=== PATIENT | male | born 1960 ===

== ENCOUNTER 2017-04-14 10:06 | Emergency (ER) | payer OTHER ==
[2017-04-14 10:17] VITALS: BP 132/86; PULSE 62; RESP 18; TEMP 98.3; O2SAT 100
--- NOTE | 2017-04-14 11:07 | C.PDOC ---
History Of Present Illness 57 yr old male presents to the ER with complaints of right ankle pain for more then 1 month. Patient states he has not seen his PMD. Denies trauma, back pain, leg pain, weakness or numbness. Time Seen by Provider: 04/14/17 10:45 Chief Complaint (Nursing): Lower Extremity Problem/Injury History Per: Patient History/Exam Limitations: no limitations Onset/Duration Of Symptoms: Persistent (More then 1 month ) Past Medical History Reviewed: Historical Data, Nursing Documentation, Vital Signs Vital Signs: Last Vital Signs Temp 98.3 F 04/14/17 10:16 Pulse 62 04/14/17 10:16 Resp 18 04/14/17 10:16 BP 132/86 04/14/17 10:16 Pulse Ox 100 04/14/17 13:44 Family History: States: No Known Family Hx - Social History Hx Alcohol Use: Yes Hx Substance Use: No - Immunization History Hx Tetanus Toxoid Vaccination: No Hx Influenza Vaccination: No Hx Pneumococcal Vaccination: No Review Of Systems Except As Marked, All Systems Reviewed And Found Negative. Musculoskeletal: Positive for: Other ((+) Right ankle pain ). Negative for: Back Pain, Leg Pain Neurological: Negative for: Weakness, Numbness Physical Exam - Physical Exam Appears: Non-toxic, No Acute Distress Skin: Warm, Dry, No Rash Head: Atraumatic, Normacephalic Extremity: Normal ROM, No Tenderness, No Calf Tenderness, No Swelling Neurological/Psych: Oriented x3, Normal Speech, Normal Motor ED Course And Treatment O2 Sat by Pulse Oximetry: 100 Disposition - Disposition Referrals: [facility] [Outside] [facility] [Outside] Evelyn Emmanuel MD [Staff Provider] - Disposition: HOME/ ROUTINE Disposition Time: 11:05 Condition: GOOD Additional Instructions: Thank you for letting us take care of you today. Your provider was Dr. Chow. You were treated for ankle pain. The emergency medical care you received today was directed at your acute symptoms. If you were prescribed any medication, please fill it and take as directed. It may take several days for your symptoms to resolve. Return to the Emergency Department if your symptoms worsen, do not improve, or if you have any other problems. Please contact your doctor or call one of the physicians/clinics you have been referred to that are listed on the Patient Visit Information form that is included in your discharge packet. Bring any paperwork you were given at discharge with you along with any medications you are taking to your follow up visit. Our treatment cannot replace ongoing medical care by a primary care provider (PCP) outside of the emergency department. Thank you for allowing the [facility] team to be part of your care today. Follow up with Dr. Kingsley Leonard, orthopedics, for you ankle pain in 2-3 days. Follow up in the clinic for outpatient primary care in 3-5 days. Prescriptions: Ibuprofen [Motrin] 600 mg PO Q6 PRN #20 tab PRN Reason: Pain, Moderate (4-7) Instructions: Ankle Sprain (ED) Forms: Gen Discharge Inst Polish Print Language: BULGARIAN - Clinical Impression Clinical Impression: Joint pain - Scribe Statement The provider has reviewed the documentation as recorded by the Soniaibjosé Penny Provider Attestation: All medical record entries made by the Soniaibjosé were at my direction and personally dictated by me. I have reviewed the chart and agree that the record accurately reflects my personal performance of the history, physical exam, medical decision making, and the department course for this patient. I have also personally directed, reviewed, and agree with the discharge instructions and disposition.
== END 2017-04-14 11:51 | disposition home or self-care (01) ==
LOC: C.ER 10:06
DX: M25.571 Pain in right ankle and joints of right foot (principal)

== ENCOUNTER 2018-03-09 08:59 | Emergency (ER) | payer OTHER ==
[2018-03-09 09:08] VITALS: O2SAT 100
[2018-03-09 09:34] LABS: SQUAMOUS EPITHIAL 1 /hpf (0-5); URINE BILIRUBIN NEGATIVE (NEGATIVE); URINE BLOOD NEGATIVE (NEGATIVE); URINE CLARITY Clear (Clear); URINE COLOR Yellow (YELLOW); URINE GLUCOSE (UA) NORMAL (Normal); URINE LEUKOCYTE ESTERASE NEG Leu/uL (Negative); URINE PROTEIN NEGATIVE (NEGATIVE); URINE UROBILINOGEN NORMAL mg/dL (0.2-1.0)
--- NOTE | 2018-03-09 09:39 | C.PDOC ---
History Of Present Illness 58 year old male presents to the ED for evaluation of sujprapubic/lower abdominal pain x 1 week. Patient states he has normal bowel movements, but feels "hot" when he has a bowel movement. Denies other associated symptoms. Past surgical history is negative. SUPRAPUB/LOWER ABD PAIN X 1 WEEK. INTERMIT. LOCALIZED. PS HAS NORMAL BM BUT FEELS "HOT" WHEN HE HAS A BM. DENIES OTHER ASSOC SX. PSH NEG. EXAM NEG Time Seen by Provider: 03/09/18 09:18 Chief Complaint (Nursing): Abdominal Pain History Per: Patient History/Exam Limitations: no limitations Onset/Duration Of Symptoms: Intermittent Episodes, Other (1 week) Current Symptoms Are (Timing): Still Present Location Of Pain/Discomfort: Suprapubic Quality Of Discomfort: "Pain" Associated Symptoms: denies: Fever, Chills, Nausea, Vomiting Additional History Per: Patient Past Medical History Reviewed: Historical Data, Nursing Documentation, Vital Signs Vital Signs: Last Vital Signs Temp 98.9 F 03/09/18 10:05 Pulse 67 03/09/18 10:05 Resp 18 03/09/18 10:05 BP 117/80 03/09/18 10:05 Pulse Ox 100 03/09/18 10:08 - Medical History PMH: No Chronic Diseases Surgical History: No Surg Hx Family History: States: Unknown Family Hx - Social History Hx Alcohol Use: Yes Hx Substance Use: No - Immunization History Hx Tetanus Toxoid Vaccination: No Hx Influenza Vaccination: No Hx Pneumococcal Vaccination: No Review Of Systems Constitutional: Negative for: Fever, Chills Gastrointestinal: Positive for: Abdominal Pain (suprapubic/lower abdominal ). Negative for: Nausea, Vomiting Physical Exam - Physical Exam Appears: Non-toxic, No Acute Distress Skin: Normal Color, Warm, Dry Head: Atraumatic, Normacephalic Eye(s): bilateral: Normal Inspection Oral Mucosa: Moist Neck: Supple Chest: Symmetrical, No Deformity, No Tenderness Cardiovascular: Rhythm Regular, No Murmur Respiratory: Normal Breath Sounds, No Rales, No Rhonchi, No Wheezing Gastrointestinal/Abdominal: Soft, No Tenderness, No Guarding, No Rebound Extremity: Normal ROM, Capillary Refill (less than 2 seconds) Neurological/Psych: Oriented x3, Normal Speech, Normal Cognition ED Course And Treatment - Laboratory Results Result Diagrams: 03/09/18 09:47 03/09/18 09:47 O2 Sat by Pulse Oximetry: 100 (on RA) Pulse Ox Interpretation: Normal Progress Note: Bloodwork and urinalysis ordered and reviewed. Disposition Counseled Patient/Family Regarding: Studies Performed, Diagnosis, Need For Followup - Disposition Referrals: [facility] [Outside] [facility] [Outside] Disposition: HOME/ ROUTINE Disposition Time: 10:07 Condition: GOOD Additional Instructions: SHAYAN PRUEBAS DE TAWNYA Y DE ORINA SON NORMALES. SEGUIMIENTO EN CLNICA PARA EVALUACIN ADICIONAL. Instructions: Acute Abdomen (Belly Pain), Adult (DC) Forms: [employer] (Cuban) Print Language: OCCITAN - Clinical Impression Clinical Impression: Abdominal pain - Scribe Statement The provider has reviewed the documentation as recorded by the Scribe (Rossy Gold) Provider Attestation: All medical record entries made by the Scribe were at my direction and personally dictated by me. I have reviewed the chart and agree that the record accurately reflects my personal performance of the history, physical exam, medical decision making, and the department course for this patient. I have also personally directed, reviewed, and agree with the discharge instructions and disposition.
[2018-03-09 09:49] LABS: HEMOGLOBIN 15.1 g/dL (12.0-18.0); MEAN CELL VOLUME 80.8 fL (80.0-94.0); MEAN CORPUSCULAR HEMOGLOBIN 27.2 pg (27.0-31.0); MEAN CORPUSCULAR HGB CONC 33.6 g/dL (33.0-37.0); MEAN PLATELET VOLUME 8.9 fL (7.2-11.7); RBC 5.57 Mil/uL (4.40-5.90); RED CELL DISTRIBUTION WIDTH 14.3 % (11.5-14.5); WHITE BLOOD COUNT 8.3 K/uL (4.8-10.8)
[2018-03-09 10:05] LABS: BLOOD UREA NITROGEN 11 mg/dL (9-20); CALCIUM 9.2 mg/dl (8.6-10.4); GFR AFRICAN-AMERICAN > 60; GFR NON-AFRICAN AMERICAN > 60
[2018-03-09 10:42] VITALS: BP 117/80; PULSE 67; RESP 18; TEMP 98.9
== END 2018-03-09 10:05 | disposition home or self-care (01) ==
LOC: C.ER 08:59
DX: R10.30 Lower abdominal pain, unspecified (principal)

== ENCOUNTER 2018-05-14 04:59 | Inpatient (IN) | payer OTHER ==
[2018-05-14] MEDS ORDERED: Sodium Chloride 0.9% 1,000 ML IV ONE (05:11)
--- NOTE | 2018-05-14 05:11 | C.PDOC ---
History Of Present Illness The patient presents to the ED for evaluation of epigastric and left lower quadrant abdominal pain which began last night. Patient also reports nausea and states he had around 4-5 episodes of vomiting last night. Patient denies fever, chills. Time Seen by Provider: 05/14/18 05:10 Chief Complaint (Nursing): Abdominal Pain History Per: Patient History/Exam Limitations: no limitations Onset/Duration Of Symptoms: Hrs Current Symptoms Are (Timing): Still Present Severity: Mild Pain Scale Rating Of: 2 Location Of Pain/Discomfort: Epigastric, LLQ Radiation Of Pain To:: None Quality Of Discomfort: "Pain" Associated Symptoms: Nausea, Vomiting. denies: Fever, Chills Exacerbating Factors: None Alleviating Factors: None Last Bowel Movement: Today Recent travel outside of the [place]: No Additional History Per: Patient Past Medical History Reviewed: Historical Data, Nursing Documentation, Vital Signs Vital Signs: Last Vital Signs Temp 98.3 F 05/14/18 05:02 Pulse 68 05/14/18 05:02 Resp 20 05/14/18 05:02 BP 160/77 H 05/14/18 05:02 Pulse Ox 98 05/14/18 06:21 - Medical History PMH: No Chronic Diseases Surgical History: No Surg Hx Family History: States: Unknown Family Hx - Social History Hx Alcohol Use: Yes Hx Substance Use: No - Immunization History Hx Tetanus Toxoid Vaccination: No Hx Influenza Vaccination: No Hx Pneumococcal Vaccination: No Review Of Systems Constitutional: Negative for: Fever, Chills Cardiovascular: Negative for: Chest Pain, Palpitations Respiratory: Negative for: Cough, Shortness of Breath Gastrointestinal: Positive for: Nausea, Vomiting, Abdominal Pain (epigastric, left lower quadrant ) Skin: Negative for: Rash, Lesions, Jaundice, Bruising Physical Exam - Physical Exam Appears: Non-toxic, No Acute Distress Skin: Warm, Dry Head: Normacephalic Eye(s): bilateral: Normal Inspection Oral Mucosa: Moist Neck: Supple Chest: Symmetrical, No Deformity, No Tenderness Cardiovascular: Rhythm Regular, No Murmur Respiratory: No Rales, No Rhonchi, No Wheezing Gastrointestinal/Abdominal: Soft, Tenderness (left lower quadrant ), No Guarding , No Rebound Extremity: Normal ROM, Capillary Refill (less than 2 seconds ) Neurological/Psych: Oriented x3 ED Course And Treatment - Laboratory Results Result Diagrams: 05/14/18 05:12 08/10/18 05:12 O2 Sat by Pulse Oximetry: 98 (on RA) Pulse Ox Interpretation: Normal Progress Note: Bloodwork, urinalysis, CT A/P ordered. Toradol IVP, Zofran IVP and IV Fluids given. Disposition Counseled Patient/Family Regarding: Studies Performed, Diagnosis - Disposition Disposition Time: 05:11 Condition: FAIR Forms: [employer] (Honduran) - Clinical Impression Clinical Impression: Abdominal pain, Pancreatitis - Scribe Statement The provider has reviewed the documentation as recorded by the Scribe (Rossy Gold) Provider Attestation: All medical record entries made by the Scribe were at my direction and personally dictated by me. I have reviewed the chart and agree that the record accurately reflects my personal performance of the history, physical exam, medical decision making, and the department course for this patient. I have also personally directed, reviewed, and agree with the discharge instructions and disposition. Physician Patient Turnover Patient Signed Over To: Marcelo Chester Handoff Comments: pending labs, ct scan and dispo
[2018-05-14 05:15] LABS: BASO # 0.1 K/uL (0.0-0.2); BASO % 0.5 % (0.0-2.0); EOS # 0.1 K/uL (0.0-0.7); EOS % 0.8 % (0.0-4.0); HEMOGLOBIN 15.3 g/dL (12.0-18.0); LYMPH # 1.8 K/uL (1.0-4.3); LYMPH % 13.2 % (20.0-40.0); MEAN CELL VOLUME 80.5 fL (80.0-94.0); MEAN CORPUSCULAR HEMOGLOBIN 26.3 pg (27.0-31.0); MEAN CORPUSCULAR HGB CONC 32.7 g/dL (33.0-37.0); MEAN PLATELET VOLUME 8.9 fL (7.2-11.7); MONO # 0.5 K/uL (0.0-0.8); MONO % 3.5 % (0.0-10.0); NEUT # 10.8 K/uL (1.8-7.0); NRBC % 0.1 % (0.0-2.0); RBC 5.81 Mil/uL (4.40-5.90); RED CELL DISTRIBUTION WIDTH 13.9 % (11.5-14.5)
[2018-05-14 05:16] LABS: WHITE BLOOD COUNT 13.2 K/uL (4.8-10.8)
[2018-05-14] MEDS ORDERED: Sodium Chloride 0.9% 1,000 ML ONE (05:16)
[2018-05-14 05:33] LABS: ALB/GLOB RATIO 1.3 (1.0-2.1); ALBUMIN 4.8 g/dL (3.5-5.0); ALT/SGPT 61 U/L (21-72); AST/SGOT 38 U/L (17-59); BLOOD UREA NITROGEN 13 mg/dL (9-20); CALCIUM 9.5 mg/dl (8.6-10.4); GFR AFRICAN-AMERICAN > 60; GFR NON-AFRICAN AMERICAN > 60; LIPASE 1275 U/L (23-300)
[2018-05-14 05:55] LABS: URINE BILIRUBIN NEGATIVE (NEGATIVE); URINE BLOOD NEGATIVE (NEGATIVE); URINE CLARITY Clear (Clear); URINE COLOR Yellow (YELLOW); URINE GLUCOSE (UA) NORMAL (Normal); URINE LEUKOCYTE ESTERASE NEG Leu/uL (Negative); URINE PROTEIN NEGATIVE (NEGATIVE); URINE UROBILINOGEN NORMAL mg/dL (0.2-1.0)
[2018-05-14] MEDS ORDERED: Iodixanol 320 MG/ML 100 ML BOTTLE IV ONE (07:39)
[2018-05-14] MEDS ORDERED: Morphine 4 MG/ML VIAL IV STA (08:28)
--- NOTE | 2018-05-14 08:52 | CT ---
Date of service: 05/14/2018 PROCEDURE: CT Abdomen and Pelvis with contrast HISTORY: Abdominal pain, elevated lipase COMPARISON: None. TECHNIQUE: CT scan of the abdomen and pelvis was performed after administration of intravenous contrast. Oral contrast was not administered. Coronal and sagittal reformatted images were obtained. Contrast dose: 100 mL Visipaque Radiation dose: Total exam DLP = 931.41 mGy-cm. This CT exam was performed using one or more of the following dose reduction techniques: Automated exposure control, adjustment of the mA and/or kV according to patient size, and/or use of iterative reconstruction technique. FINDINGS: LOWER THORAX: There is bibasilar atelectasis. LIVER: Diffuse fatty liver. No gross lesion or ductal dilatation. GALLBLADDER AND BILE DUCTS: No calcified gallstones. PANCREAS: Normal in size with homogeneous enhancement. No gross lesion or ductal dilatation. SPLEEN: Normal in size and appearance. ADRENALS: No discrete nodule. KIDNEYS AND URETERS: Normal in size with homogeneous enhancement. No hydronephrosis. No solid mass. VASCULATURE: No aortic aneurysm. BOWEL: There is mild prominence of fluid-filled proximal small bowel loops. The distal small bowel loops are normal in caliber. The colon is decompressed. APPENDIX: Normal appendix. PERITONEUM: No free fluid. No free air. LYMPH NODES: No enlarged lymph nodes. BLADDER: Well distended and normal in appearance. REPRODUCTIVE: The prostate gland is normal in size. BONES: No acute fracture. Within normal limits for the patient's age. OTHER FINDINGS: Bilateral fat containing inguinal hernias. IMPRESSION: No CT evidence for acute pancreatitis. Fatty liver. Mild prominence of fluid-filled proximal small bowel loops is nonspecific and could represent nonspecific enteritis in the appropriate clinical setting. Clinical follow-up is advised.
[2018-05-14 09:25] LABS: AMYLASE 223 U/L (30-110)
[2018-05-14] MEDS: Sodium Chloride 0.45% 1,000 ML IV SCH ×2 (10:48→20:40)
[2018-05-14] MEDS: Piperacillin/Tazobact 3.375 GM in Sodium Chloride 100 ML IVPB SCH ×2 (11:06→18:00)
--- NOTE | 2018-05-14 11:31 | RAD ---
Date of service: 05/14/2018 HISTORY: elevated white count, abd pain COMPARISON: 08/27/2016 FINDINGS: LUNGS: No active pulmonary disease. PLEURA: No significant pleural effusion identified, no pneumothorax apparent. CARDIOVASCULAR: Normal. OSSEOUS STRUCTURES: No significant abnormalities. VISUALIZED UPPER ABDOMEN: Normal. OTHER FINDINGS: None. IMPRESSION: No active disease.
[2018-05-14 11:56] LABS: BARBITURATES, UR NEGATIVE (NEGATIVE); BENZODIAZEPINES, UR NEGATIVE (NEGATIVE)
[2018-05-14] MEDS ORDERED: Morphine 4 MG/ML VIAL IV SCH (12:00)
[2018-05-14 12:29] LABS: PHENCYCLIDINE, UR NEGATIVE (NEGATIVE)
--- NOTE | 2018-05-14 12:29 | US ---
Date of service: 05/14/2018 HISTORY: RUQ pain COMPARISON: None. TECHNIQUE: Sonographic evaluation of the abdomen. FINDINGS: LIVER: Measures 17.3 cm. There is diffuse increased echogenicity of the liver parenchyma. No mass. No intrahepatic bile duct dilatation. GALLBLADDER: There are no gallstones, wall thickening or pericholecystic fluid. The sonographic Cortes's sign is negative. COMMON BILE DUCT: Measures 4.0 mm. No stones. No dilatation. PANCREAS: Unremarkable as visualized. No mass. No ductal dilatation. RIGHT KIDNEY: Measures 11.6cm. Normal echogenicity. No calculus, mass, or hydronephrosis. LEFT KIDNEY: Measures 11.8cm. Normal echogenicity. No calculus, mass, or hydronephrosis. SPLEEN: Normal in size and contour. No mass. AORTA: No aneurysmal dilatation. IVC: Unremarkable. OTHER FINDINGS: None. IMPRESSION: Mild hepatomegaly. Diffuse increased echogenicity in the liver may reflect hepatic steatosis however parenchymal infectious/ inflammatory etiologies cannot be entirely excluded. Clinical and laboratory correlation is advised. No cholelithiasis or biliary dilatation.
[2018-05-14] MEDS: metroNIDAZOLE IV 500 mg/100 ml 250 MG in Premixed IV 1 EA IVPB SCH ×2 (12:33→18:39)
[2018-05-14 12:57] LABS: OPIATES, UR POSITIVE (NEGATIVE)
--- NOTE | 2018-05-14 15:11 | CP.PCM.HP ---
<Kendall Bautista - Last Filed: 05/14/18 15:15> History of Present Illness - History of Present Illness History of Present Illness: CC: stomach pain and vomiting Patient is 58 yo male who presents to the hospital for evaluation of abdominal pain with vomiting. Patient states the pain is diffusely located throughout abdomen and not localized in a certain area. Patient reports nonradiating abdominal pain, current pain level of 6/10 worst being 10/10, constant in nature. Patient reports the pain started last night and during that time he was doing nothing just resting. Patient states that at 3 am he tried to take an ibuprofen but vomited and no pain was relief. Patient states the pain is exacerbated by certain movements. Patient states that he had a similar pain 2 months ago and came to [facility] but was not admitted to the hospital. Patient states this pain is much worse than last time. Patient does report the pain level has decreased once the morphine pain medication was given. PMH: Denies PSH: Denies FH: Denies Meds: Denies Allergies: Denies Social History: Denies tobacco use, social drinker with 2-4 drinks per event, denies drug use Code: Full Code PMD: None Review of Systems Pertinent Positives: nausea, vomiting, dizziness, abdominal pain, decreased appetite Pertinent Negatives: fevers, chills, diarrhea, constipations, hematemesis, dysuria, chest pain, sob, dysuria, headaches, weight loss Present on Admission - Present on Admission Any Indicators Present on Admission: No Review of Systems - Constitutional Constitutional: absent: Chills, Fever, Headache, Weight Loss - EENT Eyes: absent: Blurred Vision, Change in Vision Ears: Dizziness - Cardiovascular Cardiovascular: absent: Chest Pain, Dyspnea, Palpitations - Respiratory Respiratory: absent: Cough, Dyspnea - Gastrointestinal Gastrointestinal: Abdominal Pain, Nausea, Vomiting. absent: Constipation, Diarrhea - Genitourinary Genitourinary: absent: Change in Urinary Stream, Difficulty Urinating, Dysuria - Musculoskeletal Musculoskeletal: absent: Arthralgias, Back Pain - Integumentary Integumentary: absent: Swelling, Jaundice - Neurological Neurological: Dizziness. absent: Numbness, Headaches, Tingling, Weakness Past Patient History - Infectious Disease Hx of Infectious Diseases: None - Past Social History Smoking Status: Never Smoked - PSYCHIATRIC Hx Substance Use: No - SURGICAL HISTORY Hx Surgeries: No - ANESTHESIA Hx Anesthesia: No Meds Allergies/Adverse Reactions: Allergies Allergy/AdvReac Type Severity Reaction Status Date / Time No Known Allergies Allergy Verified 05/14/18 05:07 Physical Exam - Constitutional Appears: Non-toxic, No Acute Distress - Head Exam Head Exam: NORMAL INSPECTION, NORMOCEPHALIC - Eye Exam Eye Exam: EOMI, Normal appearance. absent: Nystagmus, Scleral icterus - Respiratory Exam Respiratory Exam: Clear to Auscultation Bilateral, NORMAL BREATHING PATTERN. absent: Decreased Breath Sounds, Rhonchi, Wheezes, Respiratory Distress - Cardiovascular Exam Cardiovascular Exam: REGULAR RHYTHM, +S1, +S2. absent: Tachycardia - GI/Abdominal Exam GI & Abdominal Exam: Normal Bowel Sounds, Soft, Tenderness. absent: Distended, Firm, Guarding - Extremities Exam Extremities exam: Positive for: normal inspection. Negative for: calf tenderness, pedal edema - Back Exam Back exam: NORMAL INSPECTION. absent: CVA tenderness (L), CVA tenderness (R), vertebral tenderness - Neurological Exam Neurological exam: Alert, Oriented x3 - Psychiatric Exam Psychiatric exam: Normal Affect, Normal Mood - Skin Skin Exam: Intact, Normal Color Results - Vital Signs Recent Vital Signs: Last Vital Signs Temp 98.4 F 05/14/18 14:56 Pulse 63 05/14/18 14:56 Resp 16 05/14/18 14:56 BP 113/69 05/14/18 14:56 Pulse Ox 100 05/14/18 14:56 - Labs Result Diagrams: 05/14/18 05:12 05/14/18 05:12 Labs: Laboratory Results - last 24 hr 05/14/18 05/14/18 05/14/18 05:12 05:12 05:49 WBC 13.2 H D RBC 5.81 Hgb 15.3 Hct 46.8 MCV 80.5 MCH 26.3 L MCHC 32.7 L RDW 13.9 Plt Count 251 MPV 8.9 Neut % (Auto) 82.0 H Lymph % (Auto) 13.2 L Falls % (Auto) 3.5 Eos % (Auto) 0.8 Baso % (Auto) 0.5 Neut # (Auto) 10.8 H Lymph # (Auto) 1.8 Falls # (Auto) 0.5 Eos # (Auto) 0.1 Baso # (Auto) 0.1 Sodium 142 Potassium 4.4 Chloride 104 Carbon Dioxide 24 Anion Gap 18 BUN 13 Creatinine 1.0 Est GFR ( Amer) > 60 Est GFR (Non-Af Amer) > 60 Random Glucose 168 H Calcium 9.5 Total Bilirubin 0.7 AST 38 ALT 61 Alkaline Phosphatase 93 Troponin I Total Protein 8.6 H Albumin 4.8 Globulin 3.8 Albumin/Globulin Ratio 1.3 Amylase 223 H Lipase 1275 H Urine Color Yellow Urine Clarity Clear Urine pH 7.0 Ur Specific [place] 1.018 Urine Protein Negative Urine Glucose (UA) Normal Urine Ketones Negative Urine Blood Negative Urine Nitrate Negative Urine Bilirubin Negative Urine Urobilinogen Normal Ur Leukocyte Esterase Neg Urine WBC (Auto) 1 Urine RBC (Auto) 2 Urine Opiates Screen Urine Methadone Screen Ur Barbiturates Screen Ur Phencyclidine Scrn Ur Amphetamines Screen U Benzodiazepines Scrn U Oth Cocaine Metabols U Cannabinoids Screen Alcohol, Quantitative 05/14/18 05/14/18 05/14/18 07:00 10:57 11:12 WBC RBC Hgb Hct MCV MCH MCHC RDW Plt Count MPV Neut % (Auto) Lymph % (Auto) Falls % (Auto) Eos % (Auto) Baso % (Auto) Neut # (Auto) Lymph # (Auto) Falls # (Auto) Eos # (Auto) Baso # (Auto) Sodium Potassium Chloride Carbon Dioxide Anion Gap BUN Creatinine Est GFR ( Amer) Est GFR (Non-Af Amer) Random Glucose Calcium Total Bilirubin AST ALT Alkaline Phosphatase Troponin I < 0.0120 Total Protein Albumin Globulin Albumin/Globulin Ratio Amylase Lipase Urine Color Urine Clarity Urine pH Ur Specific [place] Urine Protein Urine Glucose (UA) Urine Ketones Urine Blood Urine Nitrate Urine Bilirubin Urine Urobilinogen Ur Leukocyte Esterase Urine WBC (Auto) Urine RBC (Auto) Urine Opiates Screen Positive H Urine Methadone Screen Negative Ur Barbiturates Screen Negative Ur Phencyclidine Scrn Negative Ur Amphetamines Screen Negative U Benzodiazepines Scrn Negative U Oth Cocaine Metabols Negative U Cannabinoids Screen Negative Alcohol, Quantitative < 10 Assessment & Plan - Assessment and Plan (Free Text) Assessment: Pt is a 58 yo male who presents for abdominal pain and vomiting that started last night; labs ordered showed elevated lipase and amylase; CT abd/ pelvis did not show pancreatitis but showed nonspecific enteritis possible; patient being treated with fluids, morphine, flagyl + zosyn, ultrasound pending Plan: Acute Pancreatitis 05/14/18 CT A/P: No CT evidence of acute pancreatitis. Fatty Liver. Mild prominence of fluid-filled proximal small bowel loops is nonspecific and could represent nonspecific enteritis in the appropriate clinical setting. 05/14/18 U/S abdomen: Mild hepatomegaly. Diffuse increased echogencity in the liver may reflect hepatic steatosis however parenchymal infectious/inflammatory etiologies cannot be entirely excluded. Clinical and laboratory correlation advised /2 NS @ 150mls/hr Morphine 2mg IVP q4 prn Lipase 1275; Repeat Lipase in AM UDS negative Gastroenteritis WBC 13.2 Metronidazole 250mg IVPB q8h Zosyn 3.375g IVPB q8h Zofran IV 4mg IVP Myocardial Infarction Troponins negative; CXR- no active disease, no cardiomegaly noted Prophylaxis DVT prophylaxis: Heparin 5000 units sc daily GI prophylaxis: Not indicated at this time Medical Management discussed with Dr. Euceda. <Aaron Euceda H - Last Filed: 05/14/18 16:27> Results - Vital Signs Recent Vital Signs: Last Vital Signs Temp 98.4 F 05/14/18 14:56 Pulse 63 05/14/18 14:56 Resp 16 05/14/18 14:56 BP 113/69 05/14/18 14:56 Pulse Ox 100 05/14/18 14:56 - Labs Result Diagrams: 05/14/18 05:12 05/14/18 05:12 Labs: Laboratory Results - last 24 hr 05/14/18 05/14/18 05/14/18 05:12 05:12 05:49 WBC 13.2 H D RBC 5.81 Hgb 15.3 Hct 46.8 MCV 80.5 MCH 26.3 L MCHC 32.7 L RDW 13.9 Plt Count 251 MPV 8.9 Neut % (Auto) 82.0 H Lymph % (Auto) 13.2 L Falls % (Auto) 3.5 Eos % (Auto) 0.8 Baso % (Auto) 0.5 Neut # (Auto) 10.8 H Lymph # (Auto) 1.8 Falls # (Auto) 0.5 Eos # (Auto) 0.1 Baso # (Auto) 0.1 Sodium 142 Potassium 4.4 Chloride 104 Carbon Dioxide 24 Anion Gap 18 BUN 13 Creatinine 1.0 Est GFR ( Amer) > 60 Est GFR (Non-Af Amer) > 60 Random Glucose 168 H Calcium 9.5 Total Bilirubin 0.7 AST 38 ALT 61 Alkaline Phosphatase 93 Troponin I Total Protein 8.6 H Albumin 4.8 Globulin 3.8 Albumin/Globulin Ratio 1.3 Amylase 223 H Lipase 1275 H Urine Color Yellow Urine Clarity Clear Urine pH 7.0 Ur Specific [place] 1.018 Urine Protein Negative Urine Glucose (UA) Normal Urine Ketones Negative Urine Blood Negative Urine Nitrate Negative Urine Bilirubin Negative Urine Urobilinogen Normal Ur Leukocyte Esterase Neg Urine WBC (Auto) 1 Urine RBC (Auto) 2 Urine Opiates Screen Urine Methadone Screen Ur Barbiturates Screen Ur Phencyclidine Scrn Ur Amphetamines Screen U Benzodiazepines Scrn U Oth Cocaine Metabols U Cannabinoids Screen Alcohol, Quantitative 05/14/18 05/14/18 05/14/18 07:00 10:57 11:12 WBC RBC Hgb Hct MCV MCH MCHC RDW Plt Count MPV Neut % (Auto) Lymph % (Auto) Falls % (Auto) Eos % (Auto) Baso % (Auto) Neut # (Auto) Lymph # (Auto) Falls # (Auto) Eos # (Auto) Baso # (Auto) Sodium Potassium Chloride Carbon Dioxide Anion Gap BUN Creatinine Est GFR ( Amer) Est GFR (Non-Af Amer) Random Glucose Calcium Total Bilirubin AST ALT Alkaline Phosphatase Troponin I < 0.0120 Total Protein Albumin Globulin Albumin/Globulin Ratio Amylase Lipase Urine Color Urine Clarity Urine pH Ur Specific [place] Urine Protein Urine Glucose (UA) Urine Ketones Urine Blood Urine Nitrate Urine Bilirubin Urine Urobilinogen Ur Leukocyte Esterase Urine WBC (Auto) Urine RBC (Auto) Urine Opiates Screen Positive H Urine Methadone Screen Negative Ur Barbiturates Screen Negative Ur Phencyclidine Scrn Negative Ur Amphetamines Screen Negative U Benzodiazepines Scrn Negative U Oth Cocaine Metabols Negative U Cannabinoids Screen Negative Alcohol, Quantitative < 10 Attending/Attestation - Attestation I have personally seen and examined this patient.: Yes I have fully participated in the care of the patient.: Yes I have reviewed all pertinent clinical information: Yes Notes (Text): 05/14/18 16:22 Medical attending: Patient was seen and examined by me. Agree with the above note by the resident The patient was not in any acute distress - however he still had some pain on exam. The pain was more controlled now that he was given medication for pain. There is noted an elevated lipase of 1,200 - the CT scan did not suggest gall stones. LFTs and T sunday were stable as well. The patient on exam had gneralized tenderness - it was not limited to the RUQ. Also no guarding and no rebound. Will check an ultrasound to see if there maybe something such as a thickenined gall bladder wall or a sonographic carpio sign, and to look at CBD Also repeat the lipase, LFTs for tommorow as well. Patient will be placed on IVF, as well as IV abx for the time being. The CT did suggest possible enteritis as well. Patient denies drinking alcohol Aaron Euceda 05/14/18 16:27
[2018-05-15 00:45] VITALS: RESP 20
[2018-05-15] MEDS: Piperacillin/Tazobact 3.375 GM in Sodium Chloride 100 ML IVPB SCH ×3 (02:10→18:53)
[2018-05-15] MEDS: Sodium Chloride 0.45% 1,000 ML IV SCH ×4 (02:11→19:00)
[2018-05-15] MEDS: metroNIDAZOLE IV 500 mg/100 ml 250 MG in Premixed IV 1 EA IVPB SCH ×3 (02:26→18:00)
[2018-05-15 06:32] LABS: BASO % 0.3 % (0.0-2.0); EOS # 0.1 K/uL (0.0-0.7); EOS % 1.3 % (0.0-4.0); HEMOGLOBIN 13.8 g/dL (12.0-18.0); LYMPH # 2.5 K/uL (1.0-4.3); LYMPH % 30.5 % (20.0-40.0); MEAN CELL VOLUME 81.3 fL (80.0-94.0); MEAN CORPUSCULAR HEMOGLOBIN 27.1 pg (27.0-31.0); MEAN CORPUSCULAR HGB CONC 33.4 g/dL (33.0-37.0); MEAN PLATELET VOLUME 9.7 fL (7.2-11.7); MONO # 0.5 K/uL (0.0-0.8); MONO % 6.4 % (0.0-10.0); NEUT % 61.5 % (50.0-75.0); RBC 5.1 Mil/uL (4.40-5.90); RED CELL DISTRIBUTION WIDTH 13.6 % (11.5-14.5); WHITE BLOOD COUNT 8.1 K/uL (4.8-10.8)
--- NOTE | 2018-05-15 17:49 | CP.PCM.PN ---
Objective - Vital Signs/Intake and Output Vital Signs (last 24 hours): Temp Pulse Resp BP Pulse Ox 98.1 F 68 20 109/65 98 05/15/18 16:24 05/15/18 16:24 05/15/18 16:24 05/15/18 16:24 05/15/18 16:24 Intake and Output: 05/15/18 05/15/18 06:59 18:59 Intake Total 1550 Balance 1550 - Medications Medications: Current Medications Heparin Sodium (Porcine) (Heparin) 5,000 units SC Q12 [facility] Last Admin: 05/15/18 09:15 Dose: 5,000 units Sodium Chloride (Sodium Chloride 0.45%) 1,000 mls @ 150 mls/hr IV .Q6H40M [facility] Last Admin: 05/15/18 13:34 Dose: 150 mls/hr Metronidazole 250 mg/ (Miscellaneous) 50 mls @ 100 mls/hr IVPB Q8H [facility] PRN Reason: Protocol Last Admin: 05/15/18 10:06 Dose: 100 mls/hr Piperacillin Sod/Tazobactam (Sod 3.375 gm/ Sodium Chloride) 100 mls @ 200 mls/ hr IVPB Q8H [facility] PRN Reason: Protocol Last Admin: 05/15/18 10:08 Dose: 200 mls/hr Morphine Sulfate (Morphine) 2 mg IVP Q4 PRN PRN Reason: Pain, severe (8-10) Pneumococcal Polyvalent Vaccine (Pneumovax 23 Vaccine) 0.5 ml IM .ONCE ONE Stop: 05/16/18 10:11 - Labs Labs: 05/15/18 06:18 05/14/18 05:12
--- NOTE | 2018-05-15 18:50 | CP.PCM.PN ---
Subjective - Date & Time of Evaluation Date of Evaluation: 05/15/18 Time of Evaluation: 18:50 - Subjective Subjective: PGY-1 Medicine Progress Note for Dr. Goodson's service Patient seen and examined at bedside. Patient continues to report abdominal but with much less pain than yesterday. Patient states that his pain is a 4/10 compared to 10/10. Patient reports no episodes of nausea and vomiting. Patient denies chest pain, sob, headaches, dizziness, dysuria, constipation, diarrhea. Objective - Vital Signs/Intake and Output Vital Signs (last 24 hours): Temp Pulse Resp BP Pulse Ox 98.1 F 68 20 109/65 98 05/15/18 16:24 05/15/18 16:24 05/15/18 16:24 05/15/18 16:24 05/15/18 16:24 Intake and Output: 05/15/18 05/15/18 06:59 18:59 Intake Total 1550 Balance 1550 - Medications Medications: Current Medications Heparin Sodium (Porcine) (Heparin) 5,000 units SC Q12 [facility] Last Admin: 05/15/18 09:15 Dose: 5,000 units Sodium Chloride (Sodium Chloride 0.45%) 1,000 mls @ 150 mls/hr IV .Q6H40M [facility] Last Admin: 05/15/18 13:34 Dose: 150 mls/hr Metronidazole 250 mg/ (Miscellaneous) 50 mls @ 100 mls/hr IVPB Q8H [facility] PRN Reason: Protocol Last Admin: 05/15/18 10:06 Dose: 100 mls/hr Piperacillin Sod/Tazobactam (Sod 3.375 gm/ Sodium Chloride) 100 mls @ 200 mls/ hr IVPB Q8H [facility] PRN Reason: Protocol Last Admin: 05/15/18 10:08 Dose: 200 mls/hr Morphine Sulfate (Morphine) 2 mg IVP Q4 PRN PRN Reason: Pain, severe (8-10) Pantoprazole Sodium (Protonix Inj) 40 mg IVP DAILY [facility] Pneumococcal Polyvalent Vaccine (Pneumovax 23 Vaccine) 0.5 ml IM .ONCE ONE Stop: 05/16/18 10:11 - Labs Labs: 05/15/18 06:18 05/14/18 05:12 - Constitutional Appears: Non-toxic, No Acute Distress - Head Exam Head Exam: NORMAL INSPECTION, NORMOCEPHALIC - Eye Exam Eye Exam: Normal appearance. absent: Nystagmus, Scleral icterus - Respiratory Exam Respiratory Exam: Clear to Ausculation Bilateral, NORMAL BREATHING PATTERN. absent: Decreased Breath Sounds, Rhonchi, Wheezes, Respiratory Distress - Cardiovascular Exam Cardiovascular Exam: REGULAR RHYTHM, +S1, +S2. absent: Tachycardia, JVD, Murmur - GI/Abdominal Exam GI & Abdominal Exam: Soft, Tenderness, Normal Bowel Sounds. absent: Firm, Guarding - Extremities Exam Extremities Exam: Normal Inspection. absent: Calf Tenderness, Pedal Edema - Neurological Exam Neurological Exam: Alert, Awake, Oriented x3 - Psychiatric Exam Psychiatric exam: Normal Affect, Normal Mood - Skin Skin Exam: Intact, Normal Color Assessment and Plan - Assessment and Plan (Free Text) Assessment: Pt is a 58 yo male who presents for abdominal pain and vomiting that started last night; labs ordered showed elevated lipase and amylase; CT abd/ pelvis did not show pancreatitis but showed nonspecific enteritis possible; patient being treated with fluids, morphine, flagyl + zosyn, ultrasound negative for gallstones; GI consulted to id source Plan: Acute Pancreatitis 05/14/18 CT A/P: No CT evidence of acute pancreatitis. Fatty Liver. Mild prominence of fluid-filled proximal small bowel loops is nonspecific and could represent nonspecific enteritis in the appropriate clinical setting. 05/14/18 U/S abdomen: Mild hepatomegaly. Diffuse increased echogencity in the liver may reflect hepatic steatosis however parenchymal infectious/inflammatory etiologies cannot be entirely excluded. Clinical and laboratory correlation advised 1/2 NS @ 150mls/hr Morphine 2mg IVP q4 prn Lipase 1275; Lipase 95 UDS negative GI consulted: Gregory Pike Gastroenteritis WBC 8.1 Metronidazole 250mg IVPB q8h Zosyn 3.375g IVPB q8h Zofran IV 4mg IVP Myocardial Infarction Troponin x 1 negative; CXR- no active disease, no cardiomegaly noted Prophylaxis DVT prophylaxis: Heparin 5000 units sc daily GI prophylaxis: Not indicated at this time Medical Management discussed with Dr. Goodson
[2018-05-16] MEDS: metroNIDAZOLE IV 500 mg/100 ml 250 MG in Premixed IV 1 EA IVPB SCH (01:35)
[2018-05-16] MEDS: Piperacillin/Tazobact 3.375 GM in Sodium Chloride 100 ML IVPB SCH (02:15)
[2018-05-16] MEDS: Sodium Chloride 0.45% 1,000 ML IV SCH ×4 (02:30→15:50)
--- NOTE | 2018-05-16 08:26 | CP.PCM.PN ---
Subjective - Date & Time of Evaluation Date of Evaluation: 05/16/18 Time of Evaluation: 08:23 - Subjective Subjective: Pt seen and examined at bedside. Pt reports abdominal pains are resolving. Pt reported a normal bowel movement last night. Pt denies chest pain, SOB, f/c, N/v Objective - Vital Signs/Intake and Output Vital Signs (last 24 hours): Temp Pulse Resp BP Pulse Ox 98 F 63 20 108/68 99 05/16/18 00:00 05/16/18 00:00 05/16/18 00:00 05/16/18 00:00 05/16/18 00:00 Intake and Output: 05/16/18 05/16/18 06:59 18:59 Intake Total 2500 Output Total 0 Balance 2500 - Medications Medications: Current Medications Heparin Sodium (Porcine) (Heparin) 5,000 units SC Q12 [facility] Last Admin: 05/15/18 21:39 Dose: 5,000 units Sodium Chloride (Sodium Chloride 0.45%) 1,000 mls @ 150 mls/hr IV .Q6H40M [facility] Last Admin: 05/16/18 07:00 Dose: 150 mls/hr Metronidazole 250 mg/ (Miscellaneous) 50 mls @ 100 mls/hr IVPB Q8H [facility] PRN Reason: Protocol Last Admin: 05/16/18 01:35 Dose: 100 mls/hr Piperacillin Sod/Tazobactam (Sod 3.375 gm/ Sodium Chloride) 100 mls @ 200 mls/ hr IVPB Q8H [facility] PRN Reason: Protocol Last Admin: 05/16/18 02:15 Dose: 200 mls/hr Morphine Sulfate (Morphine) 2 mg IVP Q4 PRN PRN Reason: Pain, severe (8-10) Pantoprazole Sodium (Protonix Inj) 40 mg IVP DAILY [facility] Last Admin: 05/15/18 18:52 Dose: 40 mg Pneumococcal Polyvalent Vaccine (Pneumovax 23 Vaccine) 0.5 ml IM .ONCE ONE Stop: 05/16/18 10:11 - Labs Labs: 05/15/18 06:18 05/14/18 05:12 Assessment and Plan - Assessment and Plan (Free Text) Assessment: - Constitutional Appears: Non-toxic, No Acute Distress - Head Exam Head Exam: NORMAL INSPECTION, NORMOCEPHALIC - Eye Exam Eye Exam: Normal appearance. absent: Nystagmus, Scleral icterus - Respiratory Exam Respiratory Exam: Clear to Ausculation Bilateral, NORMAL BREATHING PATTERN. absent: Decreased Breath Sounds, Rhonchi, Wheezes, Respiratory Distress - Cardiovascular Exam Cardiovascular Exam: REGULAR RHYTHM, +S1, +S2. absent: Tachycardia, JVD, Murmur - GI/Abdominal Exam GI & Abdominal Exam: Soft, Tenderness, Normal Bowel Sounds. absent: Firm, Guarding - Extremities Exam Extremities Exam: Normal Inspection. absent: Calf Tenderness, Pedal Edema - Neurological Exam Neurological Exam: Alert, Awake, Oriented x3 - Psychiatric Exam Psychiatric exam: Normal Affect, Normal Mood - Skin Skin Exam: Intact, Normal Color Assessment and Plan Pt is a 58 yo male who presents for abdominal pain and vomiting that started last night; labs ordered showed elevated lipase and amylase; CT abd/ pelvis did not show pancreatitis but showed nonspecific enteritis possible; patient being treated with fluids, morphine, flagyl + zosyn, ultrasound negative for gallstones; GI consulted to id source Plan: Acute Pancreatitis 05/14/18 CT A/P: No CT evidence of acute pancreatitis. Fatty Liver. Mild prominence of fluid-filled proximal small bowel loops is nonspecific and could represent nonspecific enteritis in the appropriate clinical setting. 05/14/18 U/S abdomen: Mild hepatomegaly. Diffuse increased echogencity in the liver may reflect hepatic steatosis however parenchymal infectious/inflammatory etiologies cannot be entirely excluded. Clinical and laboratory correlation advised 1/2 NS @ 150mls/hr Morphine 2mg IVP q4 prn Lipase 1275; Lipase 95 UDS negative GI consulted: Gregory Pike Gastroenteritis WBC 8.1 Metronidazole 250mg IVPB q8h Zosyn 3.375g IVPB q8h Zofran IV 4mg IVP Myocardial Infarction Troponin x 1 negative; CXR- no active disease, no cardiomegaly noted Prophylaxis DVT prophylaxis: Heparin 5000 units sc daily GI prophylaxis: Not indicated at this time Medical Management discussed with Dr. Goodson
[2018-05-16 08:54] LABS: BASO % 0.3 % (0.0-2.0); EOS # 0.1 K/uL (0.0-0.7); HEMOGLOBIN 14.6 g/dL (12.0-18.0); LYMPH # 2.1 K/uL (1.0-4.3); MEAN CELL VOLUME 81.1 fL (80.0-94.0); MEAN CORPUSCULAR HEMOGLOBIN 26.8 pg (27.0-31.0); MEAN CORPUSCULAR HGB CONC 33.1 g/dL (33.0-37.0); MEAN PLATELET VOLUME 9.3 fL (7.2-11.7); MONO # 0.5 K/uL (0.0-0.8); MONO % 6.3 % (0.0-10.0); NEUT # 5.6 K/uL (1.8-7.0); NEUT % 67.4 % (50.0-75.0); NRBC % 0.1 % (0.0-2.0); RBC 5.43 Mil/uL (4.40-5.90); RED CELL DISTRIBUTION WIDTH 13.8 % (11.5-14.5); WHITE BLOOD COUNT 8.3 K/uL (4.8-10.8)
[2018-05-16 09:12] LABS: ALB/GLOB RATIO 1.3 (1.0-2.1); ALBUMIN 4.1 g/dL (3.5-5.0); ALT/SGPT 46 U/L (21-72); AMYLASE 74 U/L (30-110); AST/SGOT 26 U/L (17-59); BLOOD UREA NITROGEN 13 mg/dL (9-20); CALCIUM 8.8 mg/dl (8.6-10.4); GFR AFRICAN-AMERICAN > 60; GFR NON-AFRICAN AMERICAN > 60; LIPASE 95 U/L (23-300)
[2018-05-16] MEDS ORDERED: Pneumococcal 23-Valent Vaccine IM ONE (10:10)
--- NOTE | 2018-05-16 12:41 | CP.PCM.CON ---
History of Present Illness - History of Present Illness History of Present Illness: 58 yo hisp male admittted with diffuse upper abdominal pain and vomiting. Found to have elevated amylase and lipase. Denies any EtoH consumption of gallstomes. CT and Sono were normal as well. NO pain today and enzymes have completely resolved. No medications to cause pancreatitis. Moving bowels well and wants to eat today. Review of Systems - Cardiovascular Cardiovascular: absent: Chest Pain, Dyspnea, Edema - Respiratory Respiratory: absent: Cough, Dyspnea on Exertion - Gastrointestinal Gastrointestinal: As Per HPI Past Patient History - Infectious Disease Hx of Infectious Diseases: None - Past Medical History & Family History Past Medical History?: Yes - Past Social History Smoking Status: Former Smoker Alcohol: None Drugs: Denies Home Situation {Lives}: With Family - CARDIAC Hx Cardiac Disorders: No - PULMONARY Hx Respiratory Disorders: No - HEMATOLOGICAL/ONCOLOGICAL Hx Cirrhosis: No Hx Hepatitis A: No Hx Hepatitis B: No Hx Hepatitis C: No Hx Human Immunodeficiency Virus (HIV): No - MUSCULOSKELETAL/RHEUMATOLOGICAL Hx Falls: No - GASTROINTESTINAL Hx Gastrointestinal Disorders: No Hx Bowel Surgery: No Hx Clostridium Difficile: No Hx Colitis: No Hx Colostomy: No Hx Constipation: No Hx Crohn's Disease: No Hx Diarrhea: No Hx Diverticulitis: No Hx Esophageal Varices: No Hx Fatty Liver Disease: No Hx Gall Bladder Disease: No Hx Gastritis: No Hx Gastroesophageal Reflux: No Hx Hemorrhoids: No Hx Ileostomy: No Hx Irritable Bowel: No Hx Liver Failure: No Hx Nausea: Yes Hx Pancreatitis: No HX Swallowing Problems: No Hx Ulcer: No Hx Vomiting: Yes - PSYCHIATRIC Hx Substance Use: No - SURGICAL HISTORY Hx Surgeries: No - ANESTHESIA Hx Anesthesia: No Meds Allergies/Adverse Reactions: Allergies Allergy/AdvReac Type Severity Reaction Status Date / Time No Known Allergies Allergy Verified 05/14/18 05:07 - Medications Medications: Current Medications Heparin Sodium (Porcine) (Heparin) 5,000 units SC Q12 [facility] Last Admin: 05/16/18 09:19 Dose: 5,000 units Sodium Chloride (Sodium Chloride 0.45%) 1,000 mls @ 150 mls/hr IV .Q6H40M [facility] Last Admin: 05/16/18 07:00 Dose: 150 mls/hr Pantoprazole Sodium (Protonix Inj) 40 mg IVP DAILY [facility] Last Admin: 05/16/18 09:19 Dose: 40 mg Physical Exam - Constitutional Appears: No Acute Distress - Head Exam Head Exam: ATRAUMATIC, NORMOCEPHALIC - Eye Exam Eye Exam: EOMI, PERRL - Respiratory Exam Respiratory Exam: NORMAL BREATHING PATTERN - Cardiovascular Exam Cardiovascular Exam: REGULAR RHYTHM, +S1 - GI/Abdominal Exam GI & Abdominal Exam: Normal Bowel Sounds, Soft. absent: Distended, Guarding, Mass, Rebound, Tenderness - Rectal Exam Rectal Exam: NORMAL INSPECTION - Extremities Exam Extremities exam: Positive for: normal inspection - Neurological Exam Neurological exam: Alert, Oriented x3 - Psychiatric Exam Psychiatric exam: Normal Affect, Normal Mood - Skin Skin Exam: Dry, Warm Results - Vital Signs Recent Vital Signs: Last Vital Signs Temp 98 F 05/16/18 00:00 Pulse 63 05/16/18 00:00 Resp 20 05/16/18 00:00 BP 108/68 05/16/18 00:00 Pulse Ox 99 05/16/18 00:00 - Labs Result Diagrams: 05/16/18 08:42 05/16/18 08:42 Labs: Laboratory Results - last 24 hr 05/16/18 05/16/18 08:42 08:42 WBC 8.3 RBC 5.43 Hgb 14.6 Hct 44.0 MCV 81.1 MCH 26.8 L MCHC 33.1 RDW 13.8 Plt Count 255 MPV 9.3 Neut % (Auto) 67.4 Lymph % (Auto) 25.0 Scurry % (Auto) 6.3 Eos % (Auto) 1.0 Baso % (Auto) 0.3 Neut # (Auto) 5.6 Lymph # (Auto) 2.1 Scurry # (Auto) 0.5 Eos # (Auto) 0.1 Baso # (Auto) 0.0 Sodium 138 Potassium 3.9 Chloride 105 Carbon Dioxide 22 Anion Gap 15 BUN 13 Creatinine 0.9 Est GFR ( Amer) > 60 Est GFR (Non-Af Amer) > 60 Random Glucose 80 Calcium 8.8 Phosphorus 3.1 Magnesium 2.0 Total Bilirubin 0.9 AST 26 ALT 46 Alkaline Phosphatase 58 Total Protein 7.4 Albumin 4.1 Globulin 3.2 Albumin/Globulin Ratio 1.3 Amylase 74 Lipase 95 - Imaging and Cardiology CT scan - abdomen Status: Image reviewed by me, Report reviewed by me US - abdomen Status: Report reviewed by me Assessment & Plan (1) Acute pancreatitis Assessment and Plan: Patient with unexplained bout of acute pancreatitis, chemical, with pain, N/V and no CT or Sono findings to suggest gallstone diease, alcohol or hyperlipidemia or other meds. In absence of symptoms and rapid lab resolution would advance diet and follow up in clinic as clinically warranted. Check fasting lipid profile in am. Recall as needed, will sign off at this time. Status: Acute (2) Epigastric pain Assessment and Plan: as above Status: Acute (3) Nausea and vomiting Assessment and Plan: as above Status: Acute
[2018-05-16 17:38] VITALS: BP 113/71; PULSE 67; TEMP 98; O2SAT 97
--- NOTE | 2018-05-16 18:17 | CP.PCM.DIS ---
Provider - Provider Date of Admission: 05/14/18 09:08 Attending physician: Aaron Euceda DO Time Spent in preparation of Discharge (in minutes): 45 Hospital Course - Lab Results Lab Results: Micro Results 05/14/18 15:33 Blood Blood Culture - Preliminary NO GROWTH AFTER 48 HOURS 05/14/18 13:00 Blood Blood Culture - Preliminary NO GROWTH AFTER 48 HOURS Most Recent Lab Values WBC 8.3 K/uL (4.8-10.8) 05/16/18 08:42 RBC 5.43 Mil/uL (4.40-5.90) 05/16/18 08:42 Hgb 14.6 g/dL (12.0-18.0) 05/16/18 08:42 Hct 44.0 % (35.0-51.0) 05/16/18 08:42 MCV 81.1 fL (80.0-94.0) 05/16/18 08:42 MCH 26.8 pg (27.0-31.0) L 05/16/18 08:42 MCHC 33.1 g/dL (33.0-37.0) 05/16/18 08:42 RDW 13.8 % (11.5-14.5) 05/16/18 08:42 Plt Count 255 K/uL (130-400) 05/16/18 08:42 MPV 9.3 fL (7.2-11.7) 05/16/18 08:42 Neut % (Auto) 67.4 % (50.0-75.0) 05/16/18 08:42 Lymph % (Auto) 25.0 % (20.0-40.0) 05/16/18 08:42 Banner % (Auto) 6.3 % (0.0-10.0) 05/16/18 08:42 Eos % (Auto) 1.0 % (0.0-4.0) 05/16/18 08:42 Baso % (Auto) 0.3 % (0.0-2.0) 05/16/18 08:42 Neut # (Auto) 5.6 K/uL (1.8-7.0) 05/16/18 08:42 Lymph # (Auto) 2.1 K/uL (1.0-4.3) 05/16/18 08:42 Banner # (Auto) 0.5 K/uL (0.0-0.8) 05/16/18 08:42 Eos # (Auto) 0.1 K/uL (0.0-0.7) 05/16/18 08:42 Baso # (Auto) 0.0 K/uL (0.0-0.2) 05/16/18 08:42 Sodium 138 mmol/L (132-148) 05/16/18 08:42 Potassium 3.9 mmol/L (3.6-5.2) 05/16/18 08:42 Chloride 105 mmol/L (98-107) 05/16/18 08:42 Carbon Dioxide 22 mmol/L (22-30) 05/16/18 08:42 Anion Gap 15 (10-20) 05/16/18 08:42 BUN 13 mg/dL (9-20) 05/16/18 08:42 Creatinine 0.9 mg/dL (0.8-1.5) 05/16/18 08:42 Est GFR ( Amer) > 60 05/16/18 08:42 Est GFR (Non-Af Amer) > 60 05/16/18 08:42 Random Glucose 80 mg/dL (75-110) 05/16/18 08:42 Calcium 8.8 mg/dl (8.6-10.4) 05/16/18 08:42 Phosphorus 3.1 mg/dL (2.5-4.5) 05/16/18 08:42 Magnesium 2.0 mg/dL (1.6-2.3) 05/16/18 08:42 Total Bilirubin 0.9 mg/dL (0.2-1.3) 05/16/18 08:42 AST 26 U/L (17-59) 05/16/18 08:42 ALT 46 U/L (21-72) 05/16/18 08:42 Alkaline Phosphatase 58 U/L (38-126) 05/16/18 08:42 Troponin I < 0.0120 ng/mL (0.00-0.120) 05/14/18 10:57 Total Protein 7.4 g/dL (6.3-8.3) 05/16/18 08:42 Albumin 4.1 g/dL (3.5-5.0) 05/16/18 08:42 Globulin 3.2 gm/dL (2.2-3.9) 05/16/18 08:42 Albumin/Globulin Ratio 1.3 (1.0-2.1) 05/16/18 08:42 Amylase 74 U/L (30-110) 05/16/18 08:42 Lipase 95 U/L (23-300) 05/16/18 08:42 Urine Color Yellow (YELLOW) 05/14/18 05:49 Urine Clarity Clear (Clear) 05/14/18 05:49 Urine pH 7.0 (5.0-8.0) 05/14/18 05:49 Ur Specific [place] 1.018 (1.003-1.030) 05/14/18 05:49 Urine Protein Negative mg/dL (NEGATIVE) 05/14/18 05:49 Urine Glucose (UA) Normal mg/dL (Normal) 05/14/18 05:49 Urine Ketones Negative mg/dL (NEGATIVE) 05/14/18 05:49 Urine Blood Negative (NEGATIVE) 05/14/18 05:49 Urine Nitrate Negative (NEGATIVE) 05/14/18 05:49 Urine Bilirubin Negative (NEGATIVE) 05/14/18 05:49 Urine Urobilinogen Normal mg/dL (0.2-1.0) 05/14/18 05:49 Ur Leukocyte Esterase Neg Michael/uL (Negative) 05/14/18 05:49 Urine WBC (Auto) 1 /hpf (0-5) 05/14/18 05:49 Urine RBC (Auto) 2 /hpf (0-3) 05/14/18 05:49 Urine Opiates Screen Positive (NEGATIVE) H 05/14/18 11:12 Urine Methadone Screen Negative (NEGATIVE) 05/14/18 11:12 Ur Barbiturates Screen Negative (NEGATIVE) 05/14/18 11:12 Ur Phencyclidine Scrn Negative (NEGATIVE) 05/14/18 11:12 Ur Amphetamines Screen Negative (NEGATIVE) 05/14/18 11:12 U Benzodiazepines Scrn Negative (NEGATIVE) 05/14/18 11:12 U Oth Cocaine Metabols Negative (NEGATIVE) 05/14/18 11:12 U Cannabinoids Screen Negative (NEGATIVE) 05/14/18 11:12 Alcohol, Quantitative < 10 mg/dl (0-10) 05/14/18 07:00 - Hospital Course Hospital Course: Upon Admission: Patient is 58 yo male who presents to the hospital for evaluation of abdominal pain with vomiting. Patient states the pain is diffusely located throughout abdomen and not localized in a certain area. Patient reports nonradiating abdominal pain, current pain level of 6/10 worst being 10/10, constant in nature. Patient reports the pain started last night and during that time he was doing nothing just resting. Patient states that at 3 am he tried to take an ibuprofen but vomited and no pain was relief. Patient states the pain is exacerbated by certain movements. Patient states that he had a similar pain 2 months ago and came to [facility] but was not admitted to the hospital. Patient states this pain is much worse than last time. Patient does report the pain level has decreased once the morphine pain medication was given. Hospital Course: Patient is a 58 yo male with no PMH who presents to the hospital for severe abdominal pain and vomiting; was given morphine in ED and continued upon admission; CT abd/pelvis showed no signs of acute pancreatitis and U/S RUQ showed no stones and patient states he is not avid drinker; Lipase level was above 1000; was treated with pain meds, NPO, and Abx; blood Cx all negative though however; GI consulted and advised to advance diet slowly and he could be discharged when he would have no abdominal pain, nausea, vomiting when eating solid foods Discharge Plan: Patient is stable for discharge to home as per Dr. Goodson and Dr. Fregoso. Patient should followup with Dr. Hendrix within 1 week from discharge from hospital. Dr. Hendrix works in the clinic in [facility]. Patient should resume all of his home medications as no medication adjustments were made on this admission. Patient should return to the hospital if symptoms worsen or recur. Patient understands this plan and agrees to the above. Disclaimer: Written above is a synopsis of patient current hospital admission. For full report refer to the EMR. Discharge Exam - Head Exam Head Exam: ATRAUMATIC, NORMOCEPHALIC - Eye Exam Eye Exam: EOMI, Normal appearance. absent: Nystagmus, Scleral icterus - Respiratory Exam Respiratory Exam: NORMAL BREATHING PATTERN. absent: Rales, Rhonchi, Wheezes - Cardiovascular Exam Cardiovascular Exam: REGULAR RHYTHM, +S1, +S2 - GI/Abdominal Exam GI & Abdominal Exam: Normal Bowel Sounds, Soft. absent: Distended, Firm, Tenderness - Extremities Exam Extremities exam: normal inspection - Neurological Exam Neurological exam: Alert, Oriented x3 - Psychiatric Exam Psychiatric exam: Normal Affect, Normal Mood - Skin Skin Exam: Intact, Normal Color Discharge Plan - Follow Up Plan Condition: FAIR Disposition: HOME/ ROUTINE Instructions: Acute Abdominal Pain (DC), Acute Abdominal Pain (GEN), Pancreatitis (DC) Additional Instructions: Patient is stable for discharge to home as per Dr. Goodson and Dr. Fregoso. Patient should followup with Dr. Hendrix within 1 week from discharge from hospital. Dr. Hendrix works in the clinic in [facility]. Patient should resume all of his home medications as no medication adjustments were made on this admission. Patient should return to the hospital if symptoms worsen or recur. Patient understands this plan and agrees to the above. Referrals: Bibi Hendrix MD [Staff Provider] -
--- NOTE | 2018-05-18 17:18 | CARD ---
APPROVED REPORT Date of service: 05/14/2018 EKG Measurement Heart [id number] <Conclusion> Sinus bradycardia Otherwise normal ECG
== END 2018-05-16 20:10 | disposition home or self-care (01) | DRG 204 ==
LOC: C.ER 04:59 → C.9E 09:08 → C.3T 14:27
PROVIDERS: ADMIT Hospitalist; ATTEND Hospitalist
DX: K85.90 Acute pancreatitis without necrosis or infection, unspecified (principal); K52.9 Noninfective gastroenteritis and colitis, unspecified; R74.8 Abnormal levels of other serum enzymes; K76.0 Fatty (change of) liver, not elsewhere classified; Z87.891 Personal history of nicotine dependence

== ENCOUNTER 2018-09-10 09:05 | Emergency (ER) | payer OTHER ==
[2018-09-10 09:16] VITALS: BP 126/84; PULSE 70; RESP 16; TEMP 97.8; O2SAT 98
--- NOTE | 2018-09-10 09:42 | C.PDOC ---
History Of Present Illness 58 y/o male presents to the ED complaining of left-sided upper toothache for 5 days. He does wear a dental bridge. Patient reports he was unable to see his dentist this week. He has been taking advil without relief. Time Seen by Provider: 09/10/18 09:12 Chief Complaint (Nursing): Dental Pain History Per: Patient History/Exam Limitations: no limitations Onset/Duration Of Symptoms: Days Current Symptoms Are (Timing): Still Present Past Medical History Reviewed: Historical Data, Nursing Documentation, Vital Signs Vital Signs: Last Vital Signs Temp 97.8 F 09/10/18 09:13 Pulse 70 09/10/18 09:13 Resp 16 09/10/18 09:13 BP 126/84 09/10/18 09:13 Pulse Ox 98 09/10/18 09:13 - Medical History PMH: Denies: Crohn's Disease, Diverticulitis, Gastritis, Gall Bladder Disease, HIV, Pancreatitis Family History: States: Unknown Family Hx - Social History Hx Alcohol Use: No Hx Substance Use: No - Immunization History Hx Tetanus Toxoid Vaccination: No Hx Influenza Vaccination: No Hx Pneumococcal Vaccination: No Review Of Systems Constitutional: Negative for: Fever, Chills, Sweats ENT: Positive for: Other (Left toothache) Physical Exam - Physical Exam Appears: Non-toxic, No Acute Distress Skin: Warm, Dry Head: Atraumatic, Normacephalic Eye(s): bilateral: Normal Inspection Ear(s): Bilateral: Normal (no erythema) Oral Mucosa: Moist Teeth: Caries, No Tender To Palpation, Other (Wearing bridge) Gingiva: Swelling (Mild swelling to the left upper gingiva), No Bleeding, No Abscess Throat: Normal, No Erythema, No Exudate Neck: Normal ROM Pulses: Left Radial: Normal, Right Radial: Normal Neurological/Psych: Oriented x3, Normal Speech ED Course And Treatment O2 Sat by Pulse Oximetry: 98 (RA) Pulse Ox Interpretation: Normal Medical Decision Making Medical Decision Making: Impression: Toothache Plan: --Augmentin PO --Tylenol PO Patient remained afebrile alert and oriented with stable vital signs during ER evaluation. Dispo: Plan is to discharge patient home with antibiotic and Tylenol #3. Advised to follow up with dentist without fail. Disposition - Disposition Referrals: Jhony Cortes [facility]. [facility] [Outside] Disposition: HOME/ ROUTINE Disposition Time: 09:39 Condition: GOOD Additional Instructions: jody analgsicos segn sea necesario jody antibitico seguimiento con clnica dental Prescriptions: Acetaminophen with Codeine [Tylenol with Codeine No. 3 300 mg-30 mg] 1 tab PO Q8 PRN #20 tab PRN Reason: Pain, Moderate (4-7) Amoxicillin/Clavulanate [Augmentin 875 MG-125 MG] 1 tab PO BID #14 tab Ibuprofen [Motrin] 600 mg PO Q8 #30 tab Instructions: Dental Pain (DC) Forms: [employer] (Montserratian) Print Language: BENGALI - POA Present On Arrival: None - Clinical Impression Clinical Impression: Dental caries - PA / BOSS DYER / Resident Statement MD/DO has reviewed & agrees with the documentation as recorded. - Scribe Statement The provider has reviewed the documentation as recorded by the Scribe Sade Valencia All medical record entries made by the Scribe were at my direction and personally dictated by me. I have reviewed the chart and agree that the record accurately reflects my personal performance of the history, physical exam, medical decision making, and the department course for this patient. I have also personally directed, reviewed, and agree with the discharge instructions and disposition.
[2018-09-10] MEDS ORDERED: Acetaminophen-Codeine 300/30 mg Tab PO STA (09:43)
[2018-09-10] MEDS ORDERED: Amoxicillin-Clav 875-125 mg Tab PO STA (09:43)
[2018-09-10] MEDS ORDERED: Amoxicillin-Clav 875-125 mg Tab PO ONE (09:50)
[2018-09-10] MEDS ORDERED: Acetaminophen-Codeine 300/30 mg Tab PO ONE (09:50)
== END 2018-09-10 10:10 | disposition home or self-care (01) ==
LOC: C.ER 09:05
DX: K02.9 Dental caries, unspecified (principal)

== ENCOUNTER 2018-11-15 08:46 | Emergency (ER) | payer OTHER ==
[2018-11-15 09:04] VITALS: BMI 34.4
[2018-11-15] MEDS ORDERED: Iohexol 240 (50 ml) PO STA (09:40)
[2018-11-15] MEDS ORDERED: Sodium Chloride 0.9% 1,000 ML IV ONE (09:40)
[2018-11-15] MEDS ORDERED: Sodium Chloride 0.9% 1,000 ML ONE (09:57)
[2018-11-15] MEDS ORDERED: Iohexol 240 (50 ml) ONE (09:57)
--- NOTE | 2018-11-15 10:10 | C.PDOC ---
History Of Present Illness 58 y/o male, w/PMhx of diabetes, HTN, and pancreatitis( 5-6 months ago) presents to the ER c/o abdominal pain x 2 days. Pt states that he feels febrile, he did not take temperature. Pt notes that he had 1 episode of loose stool. He notes that he has hx of drinking and he stopped drinking about 5-6 months ago. Denies having CP, SOB, nausea, vomiting, and urinary symptoms. Time Seen by Provider: 11/15/18 09:07 Chief Complaint (Nursing): Abdominal Pain History Per: Patient History/Exam Limitations: no limitations Onset/Duration Of Symptoms: Days Current Symptoms Are (Timing): Still Present Severity: Moderate Past Medical History Reviewed: Historical Data, Nursing Documentation, Vital Signs Vital Signs: Last Vital Signs Temp 97.8 F 11/15/18 09:01 Pulse 89 11/15/18 09:01 Resp 18 11/15/18 09:01 BP 122/81 11/15/18 09:01 Pulse Ox 100 11/15/18 09:01 - Medical History PMH: HTN (pt unsure of medication name), Pancreatitis (as per patient) Denies: Crohn's Disease, Diverticulitis, Gastritis, Gall Bladder Disease, HIV Surgical History: No Surg Hx Family History: States: No Known Family Hx - Social History Hx Alcohol Use: No Hx Substance Use: No - Immunization History Hx Tetanus Toxoid Vaccination: No Hx Influenza Vaccination: No Hx Pneumococcal Vaccination: No Review Of Systems Constitutional: Positive for: Fever (subjective). Negative for: Chills Cardiovascular: Negative for: Chest Pain Respiratory: Negative for: Shortness of Breath Gastrointestinal: Positive for: Abdominal Pain, Diarrhea. Negative for: Nausea, Vomiting Genitourinary: Negative for: Dysuria, Hematuria Physical Exam - Physical Exam Appears: Non-toxic, No Acute Distress Skin: Normal Color, Warm, Dry Head: Atraumatic, Normacephalic Eye(s): bilateral: Normal Inspection Nose: Normal Oral Mucosa: Moist Neck: Supple Chest: Symmetrical Cardiovascular: Rhythm Regular Respiratory: Normal Breath Sounds, No Rales, No Rhonchi, No Wheezing Gastrointestinal/Abdominal: Soft, Tenderness (diffuse tenderness worse in RLQ), No Guarding, No Rebound Neurological/Psych: Oriented x3, Normal Speech ED Course And Treatment - Laboratory Results Result Diagrams: 11/15/18 10:31 11/15/18 10:31 O2 Sat by Pulse Oximetry: 100 (RA) Pulse Ox Interpretation: Normal - CT Scan/US CT- Abd & Pelv. Other Rad Studies (CT/US): Read By Radiologist, Radiology Report Reviewed CT/US Interpretation: IMPRESSION: Hypoattenuation of the liver compatible with hepatic steatosis. Bilateral fat containing inguinal hernias. Medical Decision Making Medical Decision Making: Plan: --Labs --UA --CT-Abd & Pelv. --IV Fluids 1314 pt resting comfortably. labs normal. ct neg for any acute pathology. re- eval of abdomen soft, normoactive bs, nd, nt. will d/c pt home with pepciid and pmd f/u Disposition Counseled Patient/Family Regarding: Studies Performed, Diagnosis, Need For Followup, Rx Given - Disposition Referrals: [facility] [Outside] Disposition: HOME/ ROUTINE Disposition Time: 13:24 Condition: IMPROVED Additional Instructions: Seguimiento en clnica mdica en pocos mazariegos. Te recomiendo que vayas a la clnica para inscribirte despus de salir de ED. Coma alimentos blandos, nada grasiento o frito. [place] Pepcid segn lo prescrito. Regrese a la alberto de emergencias para cualquier sntoma peor Follow up in medical clinic in a few days. Recommmend you go to clinic to make appintment after leaving ED. Eat bland foods, nothing greasy or fried. Take Pepcid as prescribed. Return to ER for any worse symptoms. Prescriptions: Famotidine [Pepcid] 20 mg PO DAILY #14 tab Instructions: Acute Abdomen (Belly Pain), Adult (DC) Forms: Gen Discharge Inst Italian, [employer] (Italian), Work Excuse Print Language: NIGERIEN - Clinical Impression Clinical Impression: Abdominal pain - PA / ENROLLMENT COORDINATOR / Resident Statement MD/DO has reviewed & agrees with the documentation as recorded. - Scribe Statement The provider has reviewed the documentation as recorded by the Scribe Robert Ellis Provider Attestation All medical record entries made by the Scribe were at my direction and personally dictated by me. I have reviewed the chart and agree that the record accurately reflects my personal performance of the history, physical exam, medical decision making, and the department course for this patient. I have also personally directed, reviewed, and agree with the discharge instructions and disposition.
[2018-11-15 10:38] LABS: BASO % 0.4 % (0.0-2.0); EOS # 0.1 K/uL (0.0-0.7); EOS % 1.4 % (0.0-4.0); HEMOGLOBIN 14.7 g/dL (12.0-18.0); LYMPH # 1.7 K/uL (1.0-4.3); MEAN CELL VOLUME 82.7 fL (80.0-94.0); MEAN CORPUSCULAR HEMOGLOBIN 27.5 pg (27.0-31.0); MEAN CORPUSCULAR HGB CONC 33.3 g/dL (33.0-37.0); MEAN PLATELET VOLUME 9.4 fL (7.2-11.7); MONO # 0.6 K/uL (0.0-0.8); NEUT % 55.2 % (50.0-75.0); NRBC % 0.1 % (0.0-2.0); RBC 5.35 Mil/uL (4.40-5.90); RED CELL DISTRIBUTION WIDTH 13.9 % (11.5-14.5); WHITE BLOOD COUNT 5.4 K/uL (4.8-10.8)
[2018-11-15 10:43] LABS: SQUAMOUS EPITHIAL 2 /hpf (0-5); URINE BILIRUBIN NEGATIVE (NEGATIVE); URINE BLOOD NEGATIVE (NEGATIVE); URINE CLARITY Clear (Clear); URINE COLOR Yellow (YELLOW); URINE GLUCOSE (UA) NORMAL (Normal); URINE LEUKOCYTE ESTERASE NEG Leu/uL (Negative); URINE PROTEIN NEGATIVE (NEGATIVE); URINE UROBILINOGEN NORMAL mg/dL (0.2-1.0)
[2018-11-15 11:00] LABS: ALB/GLOB RATIO 1.3 (1.0-2.1); ALBUMIN 4.3 g/dL (3.5-5.0); ALT/SGPT 35 U/L (21-72); AST/SGOT 37 U/L (17-59); BLOOD UREA NITROGEN 15 mg/dL (9-20); CALCIUM 8.7 mg/dl (8.6-10.4); GFR NON-AFRICAN AMERICAN > 60; LIPASE 148 U/L (23-300)
[2018-11-15] MEDS ORDERED: Iodixanol 320 mg/ml 150 ml Bottle IV ONE (11:46)
--- NOTE | 2018-11-15 12:36 | CT ---
PROCEDURE: CT Abdomen and Pelvis with oral and IV contrast. HISTORY: abd pain COMPARISON: CT abdomen and pelvis with contrast performed 05/14/18 TECHNIQUE: Contiguous axial images of the abdomen and pelvis. Oral and IV contrast was administered. Coronal and Sagittal reformats generated and reviewed. Contrast dose: 100 mL Visipaque 320 IV Radiation dose: Total exam DLP = 1180.49 mGy-cm. This CT exam was performed using one or more of the following dose reduction techniques: Automated exposure control, adjustment of the mA and/or kV according to patient size, and/or use of iterative reconstruction technique. FINDINGS: LOWER THORAX: No visible consolidation, pleural effusion, or pneumothorax. LIVER: Hypoattenuation of the liver compatible with hepatic steatosis. GALLBLADDER AND BILE DUCTS: Unremarkable unenhanced appearance. PANCREAS: Unremarkable unenhanced appearance. SPLEEN: Unremarkable unenhanced appearance. ADRENALS: Unremarkable unenhanced appearance. KIDNEYS AND URETERS: The kidneys enhance symmetrically. No hydronephrosis or obstructing renal calculus. BLADDER: The urinary bladder appears unremarkable. REPRODUCTIVE: The prostate gland measures approximately 3.1 x 4.2 cm. APPENDIX: The appendix appears within normal limits of caliber. No secondary signs of acute appendicitis. BOWEL: The stomach is nondistended. The bowel loops appear within normal limits of caliber without evidence of intestinal obstruction. PERITONEUM: No significant free fluid. No definite free air. LYMPH NODES: No bulky lymphadenopathy identified. VASCULATURE: No aortic aneurysm. BONES: Degenerative changes. OTHER FINDINGS: Bilateral fat containing inguinal hernias. IMPRESSION: Hypoattenuation of the liver compatible with hepatic steatosis. Bilateral fat containing inguinal hernias.
[2018-11-15 13:47] VITALS: BP 127/89; PULSE 64; RESP 16; TEMP 98.2
[2018-11-15 15:25] VITALS: O2SAT 100
== END 2018-11-15 13:45 | disposition home or self-care (01) ==
LOC: C.ER 08:46
DX: R10.31 Right lower quadrant pain (principal)
CPT/HCPCS: 74177; 80053; 81001; 83690; 85025; 96361; 96374; 99284; J7030; Q9966; Q9967

== ENCOUNTER 2018-11-27 10:49 | Emergency (ER) | payer SELFPAY ==
[2018-11-27 11:10] VITALS: BP 122/81; PULSE 70; RESP 18; TEMP 97.8; O2SAT 100
--- NOTE | 2018-11-27 12:03 | C.PDOC ---
History Of Present Illness 58 y/o male pt presents to the ER for medication refill. Patient took his last dose yesterday and his pharmacy is closed. Patient also notes that he has an appointment at the clinic on 12/10/18. He has no other complaints or associated sx at this time. Time Seen by Provider: 11/27/18 11:13 Chief Complaint (Nursing): Med Refill History Per: Patient History/Exam Limitations: no limitations Onset/Duration Of Symptoms: Days (x1) Current Symptoms Are (Timing): Still Present Past Medical History Reviewed: Historical Data, Nursing Documentation, Vital Signs Vital Signs: Last Vital Signs Temp 97.8 F 11/27/18 11:01 Pulse 70 11/27/18 11:01 Resp 18 11/27/18 11:01 BP 122/81 11/27/18 11:01 Pulse Ox 100 11/27/18 11:01 Family History: States: No Known Family Hx - Social History Hx Alcohol Use: No Hx Substance Use: No - Immunization History Hx Tetanus Toxoid Vaccination: No Hx Influenza Vaccination: Yes Hx Pneumococcal Vaccination: No Review Of Systems Constitutional: Positive for: Other (medication refill ). Negative for: Fever Eyes: Negative for: Pain ENT: Negative for: Ear Pain Cardiovascular: Negative for: Chest Pain Respiratory: Negative for: Cough Gastrointestinal: Negative for: Nausea, Vomiting Genitourinary: Negative for: Dysuria, Frequency Neurological: Negative for: Weakness, Numbness Physical Exam - Physical Exam Appears: Non-toxic, No Acute Distress Skin: Warm, Dry Head: Normacephalic Oral Mucosa: Moist Throat: Normal Cardiovascular: Rhythm Regular Respiratory: Normal Breath Sounds Neurological/Psych: Oriented x3, Normal Speech ED Course And Treatment O2 Sat by Pulse Oximetry: 100 (RA) Pulse Ox Interpretation: Normal Medical Decision Making Medical Decision Making: Impression: medication refill Plans: -- Lisinopril 2.5 mg PO DAILY #15 tablet -- metFORMIN [glucOPHAGE] 500 mg PO DAILY #15 tab Patient is encouraged to go to clinic appointment on 12/10 Disposition Counseled Patient/Family Regarding: Diagnosis, Need For Followup, Rx Given - Disposition Referrals: Bibi Hendrix MD [Staff Provider] - Disposition: HOME/ ROUTINE Disposition Time: 12:00 Condition: GOOD Additional Instructions: Vandemere los medicamentos segn lo prescrito. Lisa un seguimiento con el Dr. Hendrix el catherine ya est programado. Take medications as prescribed. Follow up with Dr Hendrix on December 10 as already scheduled. Prescriptions: Lisinopril 2.5 mg PO DAILY #15 tablet metFORMIN [glucOPHAGE] 500 mg PO DAILY #15 tab Forms: [facility] (Algerian), Gen Discharge Inst Algerian Print Language: MACEDONIAN - Clinical Impression Clinical Impression: Medication refill - PA / [employer] CONSULTANT / Resident Statement / has reviewed & agrees with the documentation as recorded. - Scribe Statement The provider has reviewed the documentation as recorded by the Jillian Landry Do All medical record entries made by the Soniaibjosé were at my direction and personally dictated by me. I have reviewed the chart and agree that the record accurately reflects my personal performance of the history, physical exam, medical decision making, and the department course for this patient. I have also personally directed, reviewed, and agree with the discharge instructions and disposition.
== END 2018-11-27 12:07 | disposition home or self-care (01) ==
LOC: C.ER 10:49 → EDSEX 10:49 → MERGE 10:49 → C.ER 12:07
DX: Z76.0 Encounter for issue of repeat prescription (principal)

== ENCOUNTER 2019-01-01 00:23 | Observation (INO) | payer SELFPAY ==
[2019-01-01 00:24] VITALS: BMI 34.4
[2019-01-01] MEDS ORDERED: Sodium Chloride 0.9% 500 ML IV ONE (01:11)
[2019-01-01] MEDS ORDERED: Sodium Chloride 0.9% 1,000 ML ONE (01:18)
[2019-01-01 01:36] LABS: BASO % 0.4 % (0.0-2.0); EOS # 0.2 K/uL (0.0-0.7); EOS % 2.1 % (0.0-4.0); LYMPH # 1.8 K/uL (1.0-4.3); LYMPH % 17.2 % (20.0-40.0); MEAN CELL VOLUME 83.1 fL (80.0-94.0); MEAN CORPUSCULAR HEMOGLOBIN 26.9 pg (27.0-31.0); MEAN CORPUSCULAR HGB CONC 32.3 g/dL (33.0-37.0); MEAN PLATELET VOLUME 9.2 fL (7.2-11.7); MONO # 0.7 K/uL (0.0-0.8); MONO % 6.9 % (0.0-10.0); NEUT # 7.7 K/uL (1.8-7.0); NEUT % 73.4 % (50.0-75.0); RBC 5.22 Mil/uL (4.40-5.90); RED CELL DISTRIBUTION WIDTH 13.9 % (11.5-14.5); WHITE BLOOD COUNT 10.5 K/uL (4.8-10.8)
[2019-01-01 01:40] LABS: SPERM URINE RARE /hpf; SQUAMOUS EPITHIAL 1 /hpf (0-5); URINE BILIRUBIN NEGATIVE (NEGATIVE); URINE BLOOD NEGATIVE (NEGATIVE); URINE CALCIUM OXALATE CRYSTALS OCC /hpf (<OCC); URINE CLARITY Clear (Clear); URINE COLOR Yellow (YELLOW); URINE GLUCOSE (UA) NORMAL (Normal); URINE LEUKOCYTE ESTERASE NEG Leu/uL (Negative); URINE PROTEIN NEGATIVE (NEGATIVE); URINE UROBILINOGEN NORMAL mg/dL (0.2-1.0)
[2019-01-01 01:47] LABS: ALB/GLOB RATIO 1.5 (1.0-2.1); ALBUMIN 4.5 g/dL (3.5-5.0); ALT/SGPT 24 U/L (21-72); AST/SGOT 36 U/L (17-59); BLOOD UREA NITROGEN 17 mg/dL (9-20); CALCIUM 9.1 mg/dl (8.6-10.4); GFR NON-AFRICAN AMERICAN > 60; LIPASE 336 U/L (23-300)
[2019-01-01] MEDS ORDERED: Iodixanol 320 MG/ML 100 ML BOTTLE IV ONE (02:25)
--- NOTE | 2019-01-01 02:42 | C.PDOC ---
History Of Present Illness 58 y/o male pt presents to the ER c/o diffuse abdominal pain. Pt denies nausea, vomiting, diarrhea or fever. Pt was dx with pancreatitis x8 months ago and is concerned if he has it again. Time Seen by Provider: 01/01/19 01:04 Chief Complaint (Nursing): Abdominal Pain History Per: Patient History/Exam Limitations: no limitations Onset/Duration Of Symptoms: Days Current Symptoms Are (Timing): Still Present Past Medical History Reviewed: Historical Data, Nursing Documentation, Vital Signs Vital Signs: Last Vital Signs Temp 98.8 F 01/01/19 00:30 Pulse 71 01/01/19 00:30 Resp 16 01/01/19 00:30 BP 124/75 01/01/19 00:30 Pulse Ox 100 01/01/19 00:30 - Medical History PMH: HTN (pt unsure of medication name) Family History: States: Unknown Family Hx - Social History Hx Alcohol Use: No Hx Substance Use: No - Immunization History Hx Tetanus Toxoid Vaccination: No Hx Influenza Vaccination: No Hx Pneumococcal Vaccination: No Review Of Systems Except As Marked, All Systems Reviewed And Found Negative. Constitutional: Positive for: Other (dx with pancreatitis ) Gastrointestinal: Positive for: Abdominal Pain (upper ). Negative for: Nausea, Vomiting, Diarrhea Physical Exam - Physical Exam Appears: Non-toxic, No Acute Distress Skin: Warm, Dry Head: Normacephalic Eye(s): bilateral: Normal Inspection Oral Mucosa: Moist Throat: Normal Chest: Symmetrical Cardiovascular: Rhythm Regular Respiratory: Normal Breath Sounds Gastrointestinal/Abdominal: Bowel Sounds (normal ), Soft, Tenderness (periumbilical), No Distention, No Guarding, No Rebound Back: No CVA Tenderness Neurological/Psych: Oriented x3, Normal Speech ED Course And Treatment - Laboratory Results Result Diagrams: 01/01/19 01:29 01/01/19 01:29 Lab Results: Total Bilirubin 0.4 mg/dL (0.2-1.3) 01/01/19 01:29 AST 36 U/L (17-59) 01/01/19 01:29 ALT 24 U/L (21-72) 01/01/19 01:29 Alkaline Phosphatase 97 U/L (38-126) 01/01/19 01:29 Total Protein 7.5 g/dL (6.3-8.3) 01/01/19 01:29 Albumin 4.5 g/dL (3.5-5.0) 01/01/19 01:29 Globulin 3.0 gm/dL (2.2-3.9) 01/01/19 01:29 Albumin/Globulin Ratio 1.5 (1.0-2.1) 01/01/19 01:29 Lipase 336 U/L (23-300) H 01/01/19 01:29 Urine Color Yellow (YELLOW) 01/01/19 01:29 Urine Clarity Clear (Clear) 01/01/19 01:29 Urine pH 5.0 (5.0-8.0) 01/01/19 01:29 Ur Specific [place] 1.026 (1.003-1.030) 01/01/19 01:29 Urine Protein Negative mg/dL (NEGATIVE) 01/01/19 01:29 Urine Glucose (UA) Normal mg/dL (Normal) 01/01/19 01:29 Urine Ketones Negative mg/dL (NEGATIVE) 01/01/19 01:29 Urine Blood Negative (NEGATIVE) 01/01/19 01:29 Urine Nitrate Negative (NEGATIVE) 01/01/19 01:29 Urine Bilirubin Negative (NEGATIVE) 01/01/19 01:29 Urine Urobilinogen Normal mg/dL (0.2-1.0) 01/01/19 01:29 Ur Leukocyte Esterase Neg Michael/uL (Negative) 01/01/19 01:29 Urine WBC (Auto) 2 /hpf (0-5) 01/01/19 01:29 Urine RBC (Auto) 1 /hpf (0-3) 01/01/19 01:29 Ur Squamous Epith Cells 1 /hpf (0-5) 01/01/19 01:29 Calcium Oxalate Crystal Occ /hpf (<OCC) H 01/01/19 01:29 Urine Sperm (Auto) Rare /hpf (NONE) H 01/01/19 01:29 O2 Sat by Pulse Oximetry: 100 (RA) Pulse Ox Interpretation: Normal - CT Scan/US CT abd and pelvis Other Rad Studies (CT/US): Read By Radiologist, Radiology Report Reviewed CT/US Interpretation: Name:JANE LICONA Exam Date:Jan 01, 2019 2:57:10 AM EDT. Modality Type:CT\SR. Description:CT - ABDOMEN AND PELVIS WITH CORONAL AND SAGITTAL MPRS. Gender:M Laterality:Not applicable. :64 Referring Physician:TOM DIA. CT SCAN OF THE ABDOMEN AND PELVIS WITH CONTRAST. CLINICAL HISTORY: Abdominal pain. TECHNIQUE: Multiple axial and coronal CT images were obtained through the abdomen and p lila after administration of intravenous contrast material. COMPARISON: 11/15/2018 12:03 PM EST: CT\SD: ABD PELVIS PO IV CONTRAST. COMMENTS: Mild cardiomegaly. There is interval appearance of diffuse inflammatory fat stranding surrounding the appendix. The appendix is mildly enlarged measuring 9.3 mm in its largest transverse dimension. The liver is enlarged with decreased attenuation without mass or defect. There is no intra or extrahepatic biliary ductal dilatation. The spleen is normal. The gallbladder is within normal limits. The pancreas is of normal contour and attenuation charac teristics. There is no evidence of adrenal mass. Both kidneys demonstrate prompt and equal nephrograms. The kidneys are normal in size, shape and configuration. There is no evidence of renal or ureteral mass. No renal or ureteral calculi are identified. There is no hydroureter or hydronephrosis. T here is no bowel wall thickening. No evidence for small or large bowel obstruction. There is no evidence of abdominal ascites or lymphadenopathy. There is no evidence of intrinsic or extrinsic bladder mass. There is no pelvic ascites or lymphadenopathy. Bilateral fat containing inguinal hernias without incarceration. Images of the lung bases show no evidence of pleural or parenchymal mass. There are no pleural effusions. The bony structures are free of lytic or blastic lesions. IMPRESSION: Hepatomegaly with hepatic steatosis. Uncomplicated fat containing inguinal hernias. Mild changes of developing acute appendicitis. Thank you for your kind referral of this patient. . Electronically signed on Jan 01, 2019 3:58:24 AM EDT by: Kelin Steven M.D., Certified by ABR, MSK, Neuroradiology. Progress Note: plans: -- chem labs. -- blood work. -- CT abd and pelvis. -- IV fluids. -- Toradol. lab results are normal. pedning CAT scan Disposition - Disposition Forms: [employer] (Bengali) - PA / [employer] / Resident Statement / has reviewed & agrees with the documentation as recorded. - Scribe Statement The provider has reviewed the documentation as recorded by the Jillian Landry Do All medical record entries made by the Jillian were at my direction and personally dictated by me. I have reviewed the chart and agree that the record accurately reflects my personal performance of the history, physical exam, medical decision making, and the department course for this patient. I have also personally directed, reviewed, and agree with the discharge instructions and disposition.
[2019-01-01] MEDS ORDERED: Piperacillin/Tazobact 3.375 gm 100 ML IV STA (04:59)
[2019-01-01] MEDS ORDERED: Piperacillin/Tazobact 3.375 gm 100 ML IVPB ONE (05:17)
--- NOTE | 2019-01-01 05:41 | CP.PCM.HP ---
<Yuli Ashton - Last Filed: 01/01/19 05:38> History of Present Illness - History of Present Illness History of Present Illness: General Surgery - Dr. Frias 58 yo M w/ hx of DM, HTN, presenting with RLQ abdominal pain since yesterday afternoon. Pt states the pain came on gradually, located in the RLQ abdomen and periumbilical region, non-radiating, 04/13. He states he has had pancreatitis in the past but this pain is different. HE denies any nausea or vomiting but does admit to loss of appetite and does not feel like eating at this time. HE denies any fevers/chills, SOb/chest pain/Diarrhea/Constipation, Dysuria or hematuria. PMH: DM, HTN PSH: none Meds: as per chart NKDA Present on Admission - Present on Admission Any Indicators Present on Admission: No Review of Systems - Review of Systems All systems: reviewed and no additional remarkable complaints except (as per HPI) Past Patient History - Infectious Disease Hx of Infectious Diseases: None - Past Medical History & Family History Past Medical History?: Yes - Past Social History Smoking Status: Former Smoker - CARDIAC Hx Hypertension: Yes (pt unsure of medication name) - PULMONARY Hx Respiratory Disorders: No - ENDOCRINE/METABOLIC Hx Diabetes Mellitus Type 2: Yes (Pt unsure of medication name) - HEMATOLOGICAL/ONCOLOGICAL Hx Human Immunodeficiency Virus (HIV): No - MUSCULOSKELETAL/RHEUMATOLOGICAL Hx Falls: No - GASTROINTESTINAL Hx Pancreatitis: No - PSYCHIATRIC Hx Substance Use: No - SURGICAL HISTORY Hx Surgeries: No - ANESTHESIA Hx Anesthesia: No Meds Allergies/Adverse Reactions: Allergies Allergy/AdvReac Type Severity Reaction Status Date / Time No Known Allergies Allergy Verified 11/30/18 11:57 Physical Exam - Constitutional Appears: Well, No Acute Distress - Head Exam Head Exam: ATRAUMATIC, NORMAL INSPECTION, NORMOCEPHALIC - Respiratory Exam Respiratory Exam: NORMAL BREATHING PATTERN. absent: Respiratory Distress - Cardiovascular Exam Cardiovascular Exam: REGULAR RHYTHM - GI/Abdominal Exam GI & Abdominal Exam: Guarding, Soft, Tenderness (RLQ). absent: Distended, Firm, Hernia, Rebound, Rigid - Neurological Exam Neurological exam: Alert, Oriented x3 - Psychiatric Exam Psychiatric exam: Normal Affect, Normal Mood - Skin Skin Exam: Dry, Intact Results - Vital Signs Recent Vital Signs: Last Vital Signs Temp 98.4 F 01/01/19 03:11 Pulse 55 L 01/01/19 03:11 Resp 16 01/01/19 03:11 BP 121/80 01/01/19 03:11 Pulse Ox 100 01/01/19 04:55 - Labs Result Diagrams: 01/01/19 01:29 01/01/19 01:29 Labs: Laboratory Results - last 24 hr 01/01/19 01/01/19 01/01/19 01:29 01:29 01:29 WBC 10.5 D RBC 5.22 Hgb 14.0 Hct 43.4 MCV 83.1 MCH 26.9 L MCHC 32.3 L RDW 13.9 Plt Count 247 MPV 9.2 Neut % (Auto) 73.4 Lymph % (Auto) 17.2 L [place] % (Auto) 6.9 Eos % (Auto) 2.1 Baso % (Auto) 0.4 Neut # (Auto) 7.7 H Lymph # (Auto) 1.8 [place] # (Auto) 0.7 Eos # (Auto) 0.2 Baso # (Auto) 0.0 Sodium 137 Potassium 3.8 Chloride 102 Carbon Dioxide 29 Anion Gap 10 BUN 17 Creatinine 0.9 Est GFR ( Amer) > 60 Est GFR (Non-Af Amer) > 60 Random Glucose 123 H D Calcium 9.1 Total Bilirubin 0.4 AST 36 ALT 24 Alkaline Phosphatase 97 Total Protein 7.5 Albumin 4.5 Globulin 3.0 Albumin/Globulin Ratio 1.5 Lipase 336 H Urine Color Yellow Urine Clarity Clear Urine pH 5.0 Ur Specific [place] 1.026 Urine Protein Negative Urine Glucose (UA) Normal Urine Ketones Negative Urine Blood Negative Urine Nitrate Negative Urine Bilirubin Negative Urine Urobilinogen Normal Ur Leukocyte Esterase Neg Urine WBC (Auto) 2 Urine RBC (Auto) 1 Ur Squamous Epith Cells 1 Calcium Oxalate Crystal Occ H Urine Sperm (Auto) Rare H Assessment & Plan - Assessment and Plan (Free Text) Assessment: 58 yo M w/ acute appendicitis -NPO -IVF -IV abx: zosyn -Pain control prn -OR for laparoscopic appendectomy this AM Dw Dr Yolanda Ashton PGY4 <Leon Burgess - Last Filed: 01/02/19 14:23> Results - Vital Signs Recent Vital Signs: Last Vital Signs Temp 99.4 F 01/02/19 07:53 Pulse 66 03/31/19 07:53 Resp 20 01/02/19 07:53 BP 112/73 01/02/19 07:53 Pulse Ox 97 01/02/19 07:53 - Labs Result Diagrams: 01/01/19 01:29 01/01/19 01:29 Assessment & Plan - Assessment and Plan (Free Text) Assessment: All medical record entries made by the resident were at my direction and perso kiara directed by me. I have reviewed the chart and agree that the record accurately reflects my personal performance of the history, physical exam, medical decision making, Plan: All medical record entries made by the resident were at my direction and personally directed by me. I have reviewed the chart and agree that the record accurately reflects my personal performance of the history, physical exam, medical decision making,
[2019-01-01] MEDS ORDERED: Lactated Ringer's 1,000 ML ONE (05:42)
[2019-01-01] MEDS: Lactated Ringer's 1,000 ML IV SCH ×3 (05:53→22:47)
[2019-01-01 07:10] LABS: INR 1.1 (0.92-1.08); PROTHROMBIN TIME 12.1 SECONDS (9.7-12.2)
[2019-01-01] MEDS: Piperacill/Tazo 3.375gm in Dex 3.375 GM/50 ML BAG IVPB SCH ×3 (12:00→22:44)
[2019-01-01] MEDS ORDERED: Pneumococcal 23-Valent Vaccine IM ONE (14:00)
--- NOTE | 2019-01-01 14:15 | CT ---
Date of service: 01/01/2019 PROCEDURE: CT Abdomen and Pelvis with contrast HISTORY: abd pain COMPARISON: Comparison is made to the previous study dated 11/15/2018 TECHNIQUE: Contrast dose: 100 mL of Visipaque 320 intravenously. Axial and reformatted coronal and sagittal CT images of the abdomen and pelvis were obtained after IV contrast administration. Radiation dose: Total exam DLP = 1169.43 mGy-cm. This CT exam was performed using one or more of the following dose reduction techniques: Automated exposure control, adjustment of the mA and/or kV according to patient size, and/or use of iterative reconstruction technique. FINDINGS: LOWER THORAX: The heart is enlarged. No evidence of pleural effusion. LIVER: Moderate hepatic steatosis is again noted. GALLBLADDER AND BILE DUCTS: Unremarkable. PANCREAS: Unremarkable. No gross lesion or ductal dilatation. SPLEEN: Unremarkable. ADRENALS: Unremarkable. No mass. KIDNEYS AND URETERS: Unremarkable. No hydronephrosis. No solid mass. VASCULATURE: Unremarkable. No aortic aneurysm. No aortic atherosclerotic calcification or mural plaque present. BOWEL: Unremarkable. No obstruction. No gross mural thickening. APPENDIX: Enlargement and thickening wall of the appendix surrounding with trace inflammation suggestive of an early appendicitis. PERITONEUM: Unremarkable. No free fluid. No free air. LYMPH NODES: Unremarkable. No enlarged lymph nodes. BLADDER: Unremarkable. REPRODUCTIVE: Unremarkable. BONES: No acute fracture. OTHER FINDINGS: Fat containing small inguinal hernia noted. IMPRESSION: Finding suggestive of acute appendicitis. Otherwise no significant interval changes since the prior study. Preliminary report was submitted by [facility] contains concordant findings.
[2019-01-01 15:58] VITALS: RESP 20
[2019-01-02 00:33] VITALS: O2SAT 97
[2019-01-02] MEDS: Piperacill/Tazo 3.375gm in Dex 3.375 GM/50 ML BAG IVPB SCH ×2 (04:14→10:46)
[2019-01-02] MEDS: Lactated Ringer's 1,000 ML IV SCH (06:57)
[2019-01-02 07:54] VITALS: BP 112/73; PULSE 66; TEMP 99.4
--- NOTE | 2019-01-02 09:20 | CP.PCM.PN ---
<Margarita Sanchez - Last Filed: 01/02/19 09:17> Subjective - Date & Time of Evaluation Date of Evaluation: 01/02/19 Time of Evaluation: 09:17 - Subjective Subjective: General Surgery Dr. Carter Pt seen and examined @bedside. OR cancelled yesterday 2/2 improvement of abd pain. No acute events overnight. Pt reports resolution of abd pain. Pt denies F/C, N/V, D/C. tolerating regular diet. Objective - Vital Signs/Intake and Output Vital Signs (last 24 hours): Temp Pulse Resp BP Pulse Ox 99.4 F 66 20 112/73 97 01/02/19 07:53 01/02/19 07:53 01/02/19 07:53 01/02/19 07:53 01/02/19 07:53 Intake and Output: 01/02/19 01/02/19 06:59 18:59 Intake Total 1240 Balance 1240 - Medications Medications: Current Medications Lactated Ringer's (Lactated Ringer's) 1,000 mls @ 125 mls/hr IV .Q8H [facility] Last Admin: 01/02/19 06:57 Dose: 125 mls/hr Piperacillin Sod/Tazobactam Sod (Zosyn 3.375 Gm Iv Premix) 3.375 gm in 50 mls @ 100 mls/hr IVPB Q6H [facility]; Protocol Last Admin: 01/02/19 04:14 Dose: 100 mls/hr Lisinopril (Zestril) 2.5 mg PO DAILY [facility] Metformin HCl (Glucophage) 500 mg PO DAILY [facility] Last Admin: 01/01/19 17:20 Dose: 500 mg - Labs Labs: 01/01/19 01:29 01/01/19 01:29 PT 12.1 SECONDS (9.7-12.2) 01/01/19 06:19 INR 1.10 (0.92-1.08) H 01/01/19 06:19 APTT 33 SECONDS (21-34) 01/01/19 06:19 - Constitutional Appears: Non-toxic, No Acute Distress - Head Exam Head Exam: NORMAL INSPECTION - Eye Exam Eye Exam: Normal appearance - ENT Exam ENT Exam: Mucous Membranes Moist - Respiratory Exam Respiratory Exam: NORMAL BREATHING PATTERN. absent: Accessory Muscle Use, Respiratory Distress - Cardiovascular Exam Cardiovascular Exam: REGULAR RHYTHM. absent: Bradycardia, Tachycardia - GI/Abdominal Exam GI & Abdominal Exam: Soft. absent: Distended, Firm, Guarding, Rigid, Tenderness (NT deep palpation RLQ) - Extremities Exam Extremities Exam: Normal Inspection - Neurological Exam Neurological Exam: Alert, Awake, Oriented x3 - Psychiatric Exam Psychiatric exam: Normal Affect, Normal Mood - Skin Skin Exam: Dry, Intact, Normal Color, Warm Assessment and Plan - Assessment and Plan (Free Text) Assessment: 58 y/o M w/ abd pain, resolved CTAP appendix visualized but fluid-filled w/ no surrounding inflammation Plan: - Pt cleared for discharge - ADAT - return to ED if fever >101, pain worsens, N/V develops Pt discussed w/ Dr. Emma Sanchez DO PGY3 <Leon Carter - Last Filed: 01/02/19 14:18> Objective - Vital Signs/Intake and Output Vital Signs (last 24 hours): Temp Pulse Resp BP Pulse Ox 99.4 F 66 20 112/73 97 01/02/19 07:53 01/02/19 07:53 01/02/19 07:53 01/02/19 07:53 01/02/19 07:53 Intake and Output: 01/02/19 01/02/19 06:59 18:59 Intake Total 1240 Balance 1240 - Medications Medications: Current Medications Lactated Ringer's (Lactated Ringer's) 1,000 mls @ 125 mls/hr IV .Q8H [facility] Last Admin: 01/02/19 06:57 Dose: 125 mls/hr Piperacillin Sod/Tazobactam Sod (Zosyn 3.375 Gm Iv Premix) 3.375 gm in 50 mls @ 100 mls/hr IVPB Q6H [facility]; Protocol Last Admin: 01/02/19 10:46 Dose: 100 mls/hr Lisinopril (Zestril) 2.5 mg PO DAILY [facility] Last Admin: 01/02/19 09:53 Dose: 2.5 mg Metformin HCl (Glucophage) 500 mg PO DAILY [facility] Last Admin: 01/02/19 09:53 Dose: 500 mg - Labs Labs: 01/01/19 01:29 01/01/19 01:29 PT 12.1 SECONDS (9.7-12.2) 01/01/19 06:19 INR 1.10 (0.92-1.08) H 01/01/19 06:19 APTT 33 SECONDS (21-34) 01/01/19 06:19 Assessment and Plan - Assessment and Plan (Free Text) Plan: All medical record entries made by the resident were at my direction and personally directed by me. I have reviewed the chart and agree that the record accurately reflects my personal performance of the history, physical exam, medical decision making,
== END 2019-01-02 13:45 | disposition home or self-care (01) ==
LOC: C.ER 00:23 → C.9E 04:55 → C.3T 09:06
PROVIDERS: ADMIT Surgery; ATTEND Surgery
DX: K35.80 Unspecified acute appendicitis (principal); Z87.891 Personal history of nicotine dependence; I10 Essential (primary) hypertension; Z53.09 Procedure and treatment not carried out because of other contraindication
CPT/HCPCS: 74177; 80053; 81001; 83690; 85025; 85610; 85730; 86850; 86900; 87040; 96374; 99285; G0378; J1885; J2543; J7040; J7120; Q9967

== ENCOUNTER 2019-01-26 08:13 | Day surgery (SDC) | payer SELFPAY ==
[2019-01-26 08:36] VITALS: BMI 34.9
[2019-01-26] MEDS ORDERED: Propofol 10 mg/ml Inj (20 ML) ONE ×4 (09:25→10:00)
[2019-01-26] MEDS ORDERED: Lactated Ringer's 1,000 ML IV ONE ×3 (09:25)
--- NOTE | 2019-01-26 09:25 | CP.SDSHP ---
Same Day Surgery H & P - History Proposed Procedure: egd. colonoscopy Pre-Op Diagnosis: heartburn. rectal bleeding. screening for colon cancer - Previous Medical/Surgical History Cardiac: Hypertension Endocrine/Metabolic: Diabetes, Obesity - Allergies Allergies: Allergies No Known Allergies Allergy (Verified 11/30/18 11:57) - Physical Exam Vital Signs: Vital Signs 01/26/19 08:36 Temperature 98 F Pulse Rate 80 Respiratory 18 Rate Blood Pressure 124/71 O2 Sat by Pulse 100 Oximetry Mental Status: Alert & Oriented x3 Neuro: WNL Heart: WNL Lungs: WNL GI: WNL - Impression Impression: heartburn. rectal bleeding. screening for colon cancer Pt. Evaluated Today:Candidate for Anesthesia & Procedure: Yes - Date & Time Date: 01/26/19 Time: 09:24 Short Stay Discharge - Short Stay Discharge Admitting Diagnosis/Reason for Visit: HEARTBURN / MELENA / ABDOMINAL DISTENSION Disposition: HOME/ ROUTINE
[2019-01-26] MEDS ORDERED: Pantoprazole 40 mg EC Tab PO ONE ×2 (09:30→10:45)
[2019-01-26] MEDS ORDERED: Simethicone 40 mg/0.6 ml Liquid (30 ml) ONE (09:55)
[2019-01-26 10:18] VITALS: TEMP 97.3
[2019-01-26 10:33] VITALS: O2SAT 100
[2019-01-26 11:00] VITALS: BP 108/68; PULSE 52; RESP 12
== END 2019-01-26 10:59 | disposition home or self-care (01) ==
LOC: C.ENDO 08:13
PROVIDERS: ATTEND Internal Medicine Gastroenterology
DX: K29.70 Gastritis, unspecified, without bleeding (principal); K92.1 Melena; K44.9 Diaphragmatic hernia without obstruction or gangrene; B96.81 Helicobacter pylori [H. pylori] as the cause of diseases classified elsewhere; D12.7 Benign neoplasm of rectosigmoid junction; D12.5 Benign neoplasm of sigmoid colon
CPT/HCPCS: 43239; 45388; 82948; 88305; 88312; 88342; J2001; J2704; J7120